=== PATIENT | female | born 1945 | race Hispanic/Latino ===

== ENCOUNTER 2018-05-04 06:57 | Emergency (ER) | payer MEDICARE ==
[2018-05-04 07:28] LABS: BASOPHILS % (AUTO) 0.6 % (0.0-5.0); EOSINOPHILS % (AUTO) 0.4 % (0.0-8.0); HEMATOCRIT 31.4 % (36-48); LYMPHOCYTES % (AUTO) 17.2 % (21.0-51.0); MEAN CORPUSCULAR HGB CONC 32.6 g/dL (32.0-36.0); MONOCYTES % (AUTO) 4.8 % (3.0-13.0); PLATELET COUNT (AUTO) 180 K/uL (130-400); RED BLOOD CELL COUNT(AUTO) 3.65 MIL/uL (4.00-5.50); RED CELL DISTRIBUTION WIDTH 13.2 % (11.0-15.5); WHITE BLOOD COUNT (AUTO) 6.8 K/uL (4.8-10.8)
[2018-05-04] MEDS ORDERED: KETOROLAC TROMETHAMINE 15MG/ML ONE (07:36)
[2018-05-04] MEDS ORDERED: ONDANSETRON HCL 4 MG/2 ML VIAL ONE (07:36)
[2018-05-04 07:43] LABS: CREATININE 0.8 mg/dL (0.5-1.5); POTASSIUM 4.5 mmol/L (3.5-5.1)
[2018-05-04 07:49] LABS: ALBUMIN 3.4 g/dL (3.5-5.0); BILIRUBIN,TOTAL 0.4 mg/dL (0.2-1.0); TOTAL PROTEIN, SERUM 7.2 g/dL (6.0-8.3)
== END 2018-05-04 09:32 | disposition home or self-care (01) ==
LOC: EDH 06:57
DX: K59.00 Constipation, unspecified (principal); R11.10 Vomiting, unspecified; M62.830 Muscle spasm of back; E78.5 Hyperlipidemia, unspecified; E07.9 Disorder of thyroid, unspecified; I25.10 Atherosclerotic heart disease of native coronary artery without angina pectoris; E11.9 Type 2 diabetes mellitus without complications; I10 Essential (primary) hypertension
CPT/HCPCS: 36415; 71046; 80053; 85025; 93005; 96374; 96375; 99284; J1885; J2405

== ENCOUNTER 2018-10-01 20:25 | Emergency (ER) | payer MEDICARE ==
[2018-10-01 21:28] LABS: EOSINOPHILS % (AUTO) 1.2 % (0.0-8.0); HEMATOCRIT 32.2 % (36-48); LYMPHOCYTES % (AUTO) 30.8 % (21.0-51.0); MEAN CORPUSCULAR HEMOGLOBIN 25.7 pg (27.0-33.0); MEAN CORPUSCULAR HGB CONC 32.4 g/dL (32.0-36.0); MEAN CORPUSCULAR VOLUME 79.5 fL (79-99); MONOCYTES % (AUTO) 18.4 % (3.0-13.0); NEUTROPHILS % (AUTO) 48.6 % (40.0-77.0); PLATELET COUNT (AUTO) 150 K/uL (130-400); RED BLOOD CELL COUNT(AUTO) 4.06 MIL/uL (4.00-5.50); RED CELL DISTRIBUTION WIDTH 15.6 % (11.0-15.5); WHITE BLOOD COUNT (AUTO) 5.1 K/uL (4.8-10.8)
[2018-10-01 21:38] LABS: CREATININE 0.8 mg/dL (0.5-1.5); POTASSIUM 4.4 mmol/L (3.5-5.1)
[2018-10-01 21:43] LABS: ALBUMIN 3.1 g/dL (3.5-5.0); BILIRUBIN,DIRECT 0.1 mg/dL (0.0-0.3); BILIRUBIN,TOTAL 0.3 mg/dL (0.2-1.0); TOTAL PROTEIN, SERUM 7.3 g/dL (6.0-8.3)
[2018-10-01] MEDS ORDERED: LIDOCAINE 5% TOPICAL PATCH TP ONE (21:57)
[2018-10-01 22:04] LABS: APPEARANCE,URINE Clear (CLEAR); BILIRUBIN,URINE Negative (NEGATIVE); COLOR,URINE Dark Yellow (YELLOW); GLUCOSE, URINE (UA) Negative (NEGATIVE); KETONES,URINE Negative (NEGATIVE); LEUKOCYTE ESTERASE ,URINE Small (NEGATIVE); NITRATE,URINE Positive (NEGATIVE); OCCULT BLOOD,URINE Small (NEGATIVE); PROTEIN,URINE 300 mg/dL (NEGATIVE); UROBILINOGEN,URINE 0.2 mg/dL (0.2-1.0)
[2018-10-01 22:10] LABS: BACTERIA,URINE Many /HPF (None Seen); RBC,URINE 0-1 /HPF (0-1)
[2018-10-01 22:11] LABS: SQUAMOUS EPITHELIAL CELL,UR 0-2 /HPF (0-2)
[2018-10-01] MEDS ORDERED: CEFTRIAXONE SODIUM 1 GM ONE ×2 (22:20→22:30)
[2018-10-01] MEDS ORDERED: KETOROLAC TROMETHAMINE 15MG/ML ONE ×2 (22:21→22:30)
== END 2018-10-02 02:04 | disposition home or self-care (01) ==
LOC: EDH 20:25
DX: N39.0 Urinary tract infection, site not specified (principal); B02.9 Zoster without complications; I10 Essential (primary) hypertension; E11.9 Type 2 diabetes mellitus without complications; I25.10 Atherosclerotic heart disease of native coronary artery without angina pectoris; E78.5 Hyperlipidemia, unspecified; E07.9 Disorder of thyroid, unspecified; Z88.8 Allergy status to other drugs, medicaments and biological substances
CPT/HCPCS: 36415; 74176; 76856; 80048; 80076; 81001; 83690; 85025; 96374; 96375; 99285; J0696; J1885

== ENCOUNTER 2019-09-20 21:49 | Emergency (ER) | payer MEDICARE ==
[2019-09-20 23:24] LABS: BASOPHILS % (AUTO) 0.6 % (0.0-5.0); EOSINOPHILS % (AUTO) 0.1 % (0.0-8.0); HEMATOCRIT 33.7 % (36-48); LYMPHOCYTES % (AUTO) 10.3 % (21.0-51.0); MEAN CORPUSCULAR HGB CONC 32.3 g/dL (32.0-36.0); MEAN CORPUSCULAR VOLUME 83.6 fL (79-99); MONOCYTES % (AUTO) 14.8 % (3.0-13.0); NEUTROPHILS % (AUTO) 73.6 % (40.0-77.0); PLATELET COUNT (AUTO) 209 K/uL (130-400); RED BLOOD CELL COUNT(AUTO) 4.03 MIL/uL (4.00-5.50); RED CELL DISTRIBUTION WIDTH 14.3 % (11.0-15.5); WHITE BLOOD COUNT (AUTO) 7.9 K/uL (4.8-10.8)
[2019-09-20 23:26] LABS: BILIRUBIN,URINE Negative (NEGATIVE); COLOR,URINE Yellow (YELLOW); GLUCOSE, URINE (UA) TRACE mg/dL (NEGATIVE); KETONES,URINE 15 mg/dL (NEGATIVE); LEUKOCYTE ESTERASE ,URINE Negative (NEGATIVE); NITRATE,URINE Negative (NEGATIVE); OCCULT BLOOD,URINE Small (NEGATIVE); PH,URINE 5.5 (5.0-8.0); PROTEIN,URINE >=1000 mg/dL (NEGATIVE); UROBILINOGEN,URINE 0.2 mg/dL (0.2-1.0)
[2019-09-20 23:27] LABS: APPEARANCE,URINE SLIGHTLY CLOUDY (CLEAR)
[2019-09-20] MEDS ORDERED: ACETAMINOPHEN EXTRA STRENGTH 500 MG TABLET ONE (23:27)
[2019-09-20] MEDS ORDERED: SODIUM CHLORIDE 0.9% 500ML 1,000 ML IV ONE (23:28)
[2019-09-20 23:33] LABS: RAPID GROUP A STREP NEGATIVE (NEGATIVE)
[2019-09-20 23:37] LABS: INR 0.94 (0.85-1.15); PARTIAL THROMBOPLASTIN TIME 26.1 SEC (26.3-35.5); PROTHROMBIN TIME 10.2 SEC (9.6-11.6)
[2019-09-20 23:38] LABS: POTASSIUM 4.6 mmol/L (3.5-5.1)
[2019-09-20 23:42] LABS: BACTERIA,URINE Many /HPF (None Seen); SQUAMOUS EPITHELIAL CELL,UR 0-2 /HPF (0-2)
[2019-09-20 23:43] LABS: ALBUMIN 3.3 g/dL (3.5-5.0); BILIRUBIN,TOTAL 0.3 mg/dL (0.2-1.0); TOTAL PROTEIN, SERUM 7.8 g/dL (6.0-8.3)
[2019-09-20 23:44] LABS: CRP QUANTITATIVE 36.8 mg/L (0.00-9.0)
[2019-09-20] MEDS ORDERED: CEFTRIAXONE SODIUM 2 GM VIAL ONE (23:46)
[2019-09-21] MEDS ORDERED: IOHEXOL 350 MG/ML 100ML INFUS..BTL IV ONE (02:09)
== END 2019-09-21 06:09 | disposition home or self-care (01) ==
LOC: EDH 21:49
DX: U07.1 COVID-19 (principal); J12.89 Other viral pneumonia; I10 Essential (primary) hypertension; E11.9 Type 2 diabetes mellitus without complications; E78.5 Hyperlipidemia, unspecified; I25.10 Atherosclerotic heart disease of native coronary artery without angina pectoris; E07.9 Disorder of thyroid, unspecified
CPT/HCPCS: 36415 ×2; 71045; 71275; 80053; 81001; 82550; 82728; 83605 ×2; 84484; 85025; 85378; 85384; 85610; 85730; 86140; 87077; 87088; 87186; 87804 ×2; 87880; 96374; 99285; J0696; J7040; Q9967; U0003

== ENCOUNTER 2022-07-16 14:19 | Observation (INO) | payer OTHER, MEDICARE ==
[~2022-07-16] VITALS: Ht 152.4 cm; Wt 70.8 kg
[2022-07-16 15:47] LABS: BASOPHILS % (AUTO) 0.2 % (0.0-5.0); EOSINOPHILS % (AUTO) 0.2 % (0.0-8.0); HEMATOCRIT 27.4 % (36-48); LYMPHOCYTES % (AUTO) 7.6 % (21.0-51.0); MEAN CORPUSCULAR HGB CONC 33.2 g/dL (32.0-36.0); MEAN CORPUSCULAR VOLUME 81.3 fL (79-99); MONOCYTES % (AUTO) 7.8 % (3.0-13.0); NEUTROPHILS % (AUTO) 82.9 % (40.0-77.0); PLATELET COUNT (AUTO) 291 K/uL (130-400); RED BLOOD CELL COUNT(AUTO) 3.37 MIL/uL (4.00-5.50); RED CELL DISTRIBUTION WIDTH 13.5 % (11.0-15.5); WHITE BLOOD COUNT (AUTO) 10.8 K/uL (4.8-10.8)
[2022-07-16 16:16] LABS: CREATININE 1.2 mg/dL (0.5-1.5); POTASSIUM 3.1 mmol/L (3.5-5.1)
[2022-07-16 16:25] LABS: ALBUMIN 1.5 g/dL (3.5-5.0); TOTAL PROTEIN, SERUM 6.9 g/dL (6.0-8.3)
[2022-07-16] MEDS ORDERED: POTASSIUM BICARB/CIT AC 25 MEQ TABLET.EFF PO SCH (17:30)
[2022-07-16 17:56] LABS: INFLUENZA TYPE B NEGATIVE FOR TYPE B (NEG)
[2022-07-16 17:57] LABS: INFLUENZA TYPE A POSITIVE FOR TYPE A (NEG)
[2022-07-16] MEDS ORDERED: SOLU-MEDROL 125MG VIAL IVP ONE (18:00)
[2022-07-16] MEDS ORDERED: IPRATROPIUM/ALBUTEROL SULFATE 3 ML SOLUTION IH ONE (18:00)
[2022-07-16 18:22] LABS: APPEARANCE,URINE CLEAR (CLEAR); BILIRUBIN,URINE NEGATIVE (NEGATIVE); COLOR,URINE LIGHT-YELLOW (YELLOW); GLUCOSE, URINE (UA) 150 mg/dL (NEGATIVE); KETONES,URINE NEGATIVE (NEGATIVE); LEUKOCYTE ESTERASE ,URINE NEGATIVE Leu/uL (NEGATIVE); NITRATE,URINE NEGATIVE (NEGATIVE); OCCULT BLOOD,URINE MODERATE (NEGATIVE); PROTEIN,URINE 600 mg/dL (NEGATIVE); UROBILINOGEN,URINE 0.2 mg/dL (0.2-1.0)
[2022-07-16 18:45] LABS: BACTERIA,URINE RARE /HPF (None Seen); MUCUS,URINE RARE LPF (None Seen); RBC,URINE 0-1 /HPF (0-1); SQUAMOUS EPITHELIAL CELL,UR FEW /HPF (0-2)
[2022-07-16] MEDS ORDERED: ASPIRIN 325MG EC TAB PO ONE (19:00)
[2022-07-16] MEDS ORDERED: OSELTAMIVIR PHOSPHATE 75 MG CAP PO ONE (19:00)
[2022-07-16] MEDS ORDERED: ENOXAPARIN SODIUM 80 MG/0.8 ML SQ ONE (19:00)
[2022-07-16] MEDS: OSELTAMIVIR PHOSPHATE 75 MG CAP PO SCH (19:38)
[2022-07-16] MEDS ORDERED: DIPHENHYDRAMINE HCL 25 MG CAPSULE PO PRN (20:00)
[2022-07-16] MEDS ORDERED: POTASSIUM CHLORIDE 10% ELIXIR 20 MEQ/15 ML UDCUP PO PRN (20:00)
[2022-07-16] MEDS ORDERED: MAG/ALUM/SIMETH 30 ML UDCUP PO PRN (20:00)
[2022-07-16] MEDS ORDERED: KCL 20 MEQ ERTAB PO PRN (20:00)
[2022-07-16] MEDS ORDERED: POTASSIUM CHLORIDE 20MEQ/100ML 100 ML IV PRN (20:00)
[2022-07-16] MEDS ORDERED: IPRATROPIUM/ALBUTEROL SULFATE 3 ML SOLUTION IH PRN (20:00)
[2022-07-16] MEDS ORDERED: ACETAMINOPHEN 325 MG TAB PO PRN ×2 (20:00)
[2022-07-16] MEDS ORDERED: LACTULOSE 20 GM/30 ML UDCUP PO PRN (20:00)
[2022-07-16] MEDS ORDERED: GUAIFENESIN-DM 200/20 MG 10 ML PO PRN (20:00)
[2022-07-16] MEDS ORDERED: MORPHINE 4 MG SYG IV PRN (20:00)
[2022-07-16] MEDS ORDERED: NITROGLYCERIN 0.4 MG SL TAB SL PRN (20:00)
[2022-07-16] MEDS ORDERED: ONDANSETRON 4MG INJ IV PRN (20:00)
[2022-07-16] MEDS: AZITHROMYCIN 250 MG TABLET PO SCH (21:02)
[2022-07-16] MEDS: CEFTRIAXONE 1G VIAL IVP SCH (21:02)
[2022-07-16] MEDS: FAMOTIDINE 20MG TAB PO SCH (21:02)
[2022-07-16] MEDS: INSULIN HUMULIN R 100 UNIT/ML 3ML SQ SCH (21:14)
[2022-07-16 23:55] VITALS: BP 126/74
[2022-07-17 03:21] VITALS: BP 121/68
[2022-07-17 03:46] LABS: MEAN CORPUSCULAR HEMOGLOBIN 27.3 pg (27.0-33.0); MEAN CORPUSCULAR HGB CONC 33.7 g/dL (32.0-36.0); MEAN CORPUSCULAR VOLUME 81.1 fL (79-99); RED BLOOD CELL COUNT(AUTO) 3.33 MIL/uL (4.00-5.50); RED CELL DISTRIBUTION WIDTH 13.4 % (11.0-15.5); WHITE BLOOD COUNT (AUTO) 6.9 K/uL (4.8-10.8)
[2022-07-17 03:59] LABS: CREATININE 1.1 mg/dL (0.5-1.5); MAGNESIUM 1.8 mg/dL (1.80-2.40)
[2022-07-17] MEDS: INSULIN HUMULIN R 100 UNIT/ML 3ML SQ SCH ×4 (06:14→20:33)
[2022-07-17 07:00] VITALS: BP 128/74
[2022-07-17] MEDS: OSELTAMIVIR PHOSPHATE 75 MG CAP PO SCH ×2 (08:39→20:31)
[2022-07-17] MEDS: ENOXAPARIN SODIUM 40 MG/0.4 ML SYRINGE SQ SCH (08:39)
[2022-07-17] MEDS: ASPIRIN 81 MG EC TAB PO SCH (08:40)
[2022-07-17] MEDS: FAMOTIDINE 20MG TAB PO SCH ×2 (08:40→20:30)
[2022-07-17 11:20] VITALS: BP 108/66
[2022-07-17] MEDS ORDERED: FUROSEMIDE 40MG VIAL IV ONE (12:30)
[2022-07-17] MEDS ORDERED: MAGNESIUM 2GM PREMIX 50ML 50 ML IV SCH (15:00)
[2022-07-17] MEDS ORDERED: ROSU10TA28 PO (16:06)
[2022-07-17] MEDS ORDERED: LEVO75 PO (16:06)
[2022-07-17] MEDS ORDERED: LINA5TAB PO (16:06)
[2022-07-17] MEDS ORDERED: FERR-72 PO (16:06)
[2022-07-17] MEDS ORDERED: EZET10TA48 PO (16:06)
[2022-07-17] MEDS ORDERED: ISOS10TA8 PO (16:06)
[2022-07-17] MEDS ORDERED: LISI40TA9 PO (16:06)
[2022-07-17 16:35] VITALS: BP 131/73
[2022-07-17 19:14] VITALS: BP 118/71
[2022-07-17] MEDS: CEFTRIAXONE 1G VIAL IVP SCH (20:29)
[2022-07-17] MEDS: AZITHROMYCIN 250 MG TABLET PO SCH (20:31)
[2022-07-17] MEDS ORDERED: ISOSORBIDE MONONITRATE 20 MG TABLET PO SCH (21:00)
[2022-07-17] MEDS ORDERED: EZETIMIBE 10 MG TAB PO SCH (21:00)
[2022-07-17 23:00] VITALS: BP 126/75
[2022-07-18 03:23] VITALS: BP 123/69
[2022-07-18 03:58] LABS: HEMATOCRIT 27.4 % (36-48); MEAN CORPUSCULAR HEMOGLOBIN 26.6 pg (27.0-33.0); MEAN CORPUSCULAR HGB CONC 31.8 g/dL (32.0-36.0); MEAN CORPUSCULAR VOLUME 83.8 fL (79-99); RED BLOOD CELL COUNT(AUTO) 3.27 MIL/uL (4.00-5.50); RED CELL DISTRIBUTION WIDTH 13.5 % (11.0-15.5); WHITE BLOOD COUNT (AUTO) 13.4 K/uL (4.8-10.8)
[2022-07-18] MEDS: INSULIN HUMULIN R 100 UNIT/ML 3ML SQ SCH ×2 (05:55→11:30)
[2022-07-18] MEDS ORDERED: LEVOTHYROXINE 75 MCG TABLET PO SCH (06:30)
[2022-07-18 07:25] VITALS: BP 128/73
[2022-07-18] MEDS ORDERED: FERROUS SULFATE 325 MG TABLET.DR PO SCH (08:00)
[2022-07-18] MEDS: ENOXAPARIN SODIUM 40 MG/0.4 ML SYRINGE SQ SCH (08:44)
[2022-07-18] MEDS: ASPIRIN 81 MG EC TAB PO SCH (08:45)
[2022-07-18] MEDS: OSELTAMIVIR PHOSPHATE 75 MG CAP PO SCH (08:45)
[2022-07-18] MEDS: FAMOTIDINE 20MG TAB PO SCH (08:45)
[2022-07-18] MEDS ORDERED: FUROSEMIDE 20 MG TABLET PO SCH (09:00)
[2022-07-18] MEDS ORDERED: ATORVASTATIN 20 MG TABLET PO SCH (09:00)
[2022-07-18] MEDS ORDERED: LISINOPRIL 40 MG TABLET PO SCH (09:00)
[2022-07-18] MEDS ORDERED: OSEL75 PO (10:43)
[2022-07-18] MEDS ORDERED: FURO20TA4 PO (10:43)
[2022-07-18] MEDS ORDERED: AMOX1TAB16 PO (10:43)
[2022-07-18] MEDS ORDERED: SODIUM CHLORIDE 3% FOR INHALATION 4 ML/AMP VIAL.NEB IH ONE (10:52)
[2022-07-18] MEDS ORDERED: BENZ-39 PO (11:12)
[2022-07-18 11:20] VITALS: BP 137/64
== END 2022-07-18 12:10 | disposition home or self-care (01) ==
LOC: EDH 14:19 → EDHIP 18:53 → 2AH 07-17 00:05
PROVIDERS: ADMIT Internal Medicine; ATTEND Hospitalist
DX: I11.0 Hypertensive heart disease with heart failure (principal); Z20.822 Contact with and (suspected) exposure to COVID-19; I50.9 Heart failure, unspecified; J18.9 Pneumonia, unspecified organism; R74.8 Abnormal levels of other serum enzymes; J10.1 Influenza due to other identified influenza virus with other respiratory manifestations; E87.6 Hypokalemia; E11.65 Type 2 diabetes mellitus with hyperglycemia; E03.9 Hypothyroidism, unspecified; D64.9 Anemia, unspecified; E78.00 Pure hypercholesterolemia, unspecified; E66.9 Obesity, unspecified; I24.8 Other forms of acute ischemic heart disease; J10.00 Influenza due to other identified influenza virus with unspecified type of pneumonia; R77.8 Other specified abnormalities of plasma proteins; J20.9 Acute bronchitis, unspecified; Z68.34 Body mass index [BMI] 34.0-34.9, adult; Z78.9 Other specified health status; Z79.4 Long term (current) use of insulin; Z79.899 Other long term (current) drug therapy; Z90.710 Acquired absence of both cervix and uterus
CPT/HCPCS: 96372 ×3; 96375 ×3; 84484 ×3; 80053; 83880; 83690; 85025; 87040 ×2; 87880; 87804 ×2; 82948 ×7; 83605 ×2; 81001; 36415 ×3; 87635; 71045; 99291; 93005 ×2; 94640 ×2; 84145; 97039 ×2; 96376; 96365; 96366; 83735 ×2; 80048; 85027 ×2; 71250; 93306; 93356; 97161; 92610; J1815 ×4; G0378 ×38; C9803; J2930; J0696 ×2; J1650 ×3; J3475; J1940; 96374

== ENCOUNTER → 2023-07-05 | Outpatient (CLI) | payer OTHER, MEDICARE ==
[~2023-07-05] MED LIST: AMOX1TAB16 PO; BENZ-39 PO; EZET10TA48 PO; FERR-72 PO; FURO20TA4 PO; IOHEXOL 350 MG/ML 100ML INFUS..BTL IV ONE; ISOS10TA8 PO; LEVO75 PO; LINA5TAB PO; LISI40TA9 PO; OSEL75 PO; ROSU10TA28 PO
== END | disposition home or self-care (01) ==
LOC: RAH 07:57
PROVIDERS: ATTEND Family Medicine
DX: K57.30 Diverticulosis of large intestine without perforation or abscess without bleeding (principal); R93.89 Abnormal findings on diagnostic imaging of other specified body structures; J90 Pleural effusion, not elsewhere classified; J98.11 Atelectasis
CPT/HCPCS: 74178; Q9967

== ENCOUNTER 2023-12-02 20:48 | Inpatient (IN) | payer OTHER, MEDICARE ==
[~2023-12-02] VITALS: Ht 165.1 cm; Wt 88.0 kg
[~2023-12-02 20:48] MED LIST changes: -IOHEXOL 350 MG/ML 100ML INFUS..BTL IV ONE; -ROSU10TA28 PO; +ROSU10TA72 PO
[2023-12-02 21:32] LABS: BASOPHILS # (AUTO) 0.04 K/uL (0.00-0.20); BASOPHILS % (AUTO) 0.6 % (0.0-5.0); EOSINOPHILS # (AUTO) 0.12 K/uL (0.00-0.70); EOSINOPHILS % (AUTO) 1.9 % (0.0-8.0); IMMATURE GRANULOCYTE ABSOLUTE 0.01 K/uL (0-1); LYMPHOCYTES # (AUTO) 1.8 K/uL (1.0-4.8); LYMPHOCYTES % (AUTO) 27.2 % (21.0-51.0); MEAN CORPUSCULAR HEMOGLOBIN 28.3 pg (27.0-33.0); MEAN CORPUSCULAR HGB CONC 31.5 g/dL (32.0-36.0); MONOCYTES # (AUTO) 0.7 K/uL (0.1-1.0); NEUTROPHILS # (AUTO) 3.8 K/uL (1.8-7.7); NEUTROPHILS % (AUTO) 59.1 % (40.0-77.0); PLATELET COUNT (AUTO) 180 K/uL (130-400); RED CELL DISTRIBUTION WIDTH 14.5 % (11.0-15.5); WHITE BLOOD COUNT (AUTO) 6.5 K/uL (4.8-10.8)
[2023-12-02 21:38] LABS: CREATININE 1.5 mg/dL (0.5-1.0); POTASSIUM 5.4 mmol/L (3.5-5.1)
[2023-12-02 21:45] LABS: APPEARANCE,URINE CLEAR (CLEAR); BILIRUBIN,URINE NEGATIVE (NEGATIVE); COLOR,URINE LIGHT-YELLOW (YELLOW); GLUCOSE, URINE (UA) TRACE mg/dL (NEGATIVE); KETONES,URINE NEGATIVE (NEGATIVE); LEUKOCYTE ESTERASE ,URINE NEGATIVE Leu/uL (NEGATIVE); NITRATE,URINE NEGATIVE (NEGATIVE); OCCULT BLOOD,URINE SMALL (NEGATIVE); PH,URINE 6.5 (5.0-8.0); PROTEIN,URINE 600 mg/dL (NEGATIVE); UROBILINOGEN,URINE 0.2 mg/dL (0.2-1.0)
[2023-12-02 21:46] LABS: ADD UA MICROSCOPIC YES
[2023-12-02 21:48] LABS: INR 1.01 (0.85-1.15); PROTHROMBIN TIME 10.9 SEC (9.6-11.6)
[2023-12-02 21:48] LABS: BACTERIA,URINE RARE /HPF (None Seen)
[2023-12-02 21:50] LABS: PARTIAL THROMBOPLASTIN TIME 25.9 SEC (26.3-35.5)
[2023-12-02 21:54] LABS: B-TYPE NATRIURETIC PEPTIDE 2300 pg/mL (0-100)
[2023-12-02] MEDS: furoSEMIDE 20MG VIAL IV ONE (22:47)
[2023-12-02] MEDS: ASPIRIN 325MG TAB PO ONE (22:48)
[2023-12-02] MEDS: metoPROLOL tartRATE 1 MG/ML 5ML VIAL IV ONE (22:48)
[2023-12-02] MEDS ORDERED: acetaMINOPHEN 650 MG SUPPOSITORY RC PRN (23:00)
[2023-12-02] MEDS ORDERED: TEMAZepam 15 MG CAPSULE PO PRN (23:00)
[2023-12-02] MEDS ORDERED: ondanSETRON 4MG INJ IVP PRN (23:00)
[2023-12-02] MEDS ORDERED: doCUSate SODIUM 100 MG CAP PO PRN (23:00)
[2023-12-02 23:47] LABS: SARS-CoV-2, RNA, NAAT NEGATIVE SARS CoV-2 (NEGATIVE)
[2023-12-02] MEDS: hydrALAZine 20MG/ML VIAL IV PRN (23:48)
[2023-12-02 23:54] LABS: INFLUENZA TYPE A Negative For Type A (NEGATIVE); INFLUENZA TYPE B Negative For Type B (NEGATIVE)
[2023-12-03] VITALS (10 sets, daily range): BP systolic 101–160; BP diastolic 59–91; PULSE 85–97; RESP 16–22; TEMP 98.1–98.8; O2SAT 95–98
[2023-12-03 00:08] LABS: ABG BASE EXCESS -1.9 mmol/L (-2.0-3.0); ABG HCO3 21.9 mmol/L (21.0-28.0); ABG PCO2 34 mmHg (32-45); ABG PH 7.432 (7.350-7.450); CARBON MONOXIDE 0.3 % (0.5-1.5); DEVICE COMMENT RR; VENT MODE, BG CANNULA (ROOM AIR)
[2023-12-03] MEDS: furoSEMIDE 20MG VIAL IV ONE (00:34)
[2023-12-03] MEDS: NITROGLYCERIN 1GM OINT 1 INCH/1GM TD SCH (00:34)
[2023-12-03] MEDS: NITROGLYCERIN 0.4 MG SL TAB SL ONE (01:12)
[2023-12-03] MEDS ORDERED: FOLI0.4T6 PO (01:17)
[2023-12-03] MEDS ORDERED: FERR324T9 PO (01:17)
[2023-12-03] MEDS ORDERED: CYAN-106 PO (01:17)
[2023-12-03] MEDS ORDERED: CARV12.511 PO (01:17)
[2023-12-03] MEDS ORDERED: FERS325 PO (01:17)
[2023-12-03 03:47] LABS: BASOPHILS # (AUTO) 0.04 K/uL (0.00-0.20); BASOPHILS % (AUTO) 0.4 % (0.0-5.0); HEMATOCRIT 28.3 % (36-48); IMMATURE GRANULOCYTE ABSOLUTE 0.04 K/uL (0-1); LYMPHOCYTES # (AUTO) 0.8 K/uL (1.0-4.8); LYMPHOCYTES % (AUTO) 9.3 % (21.0-51.0); MEAN CORPUSCULAR HGB CONC 31.8 g/dL (32.0-36.0); MEAN CORPUSCULAR VOLUME 87.9 fL (79-99); MONOCYTES # (AUTO) 0.3 K/uL (0.1-1.0); MONOCYTES % (AUTO) 3.5 % (3.0-13.0); NEUTROPHILS # (AUTO) 7.8 K/uL (1.8-7.7); NEUTROPHILS % (AUTO) 86.4 % (40.0-77.0); PLATELET COUNT (AUTO) 179 K/uL (130-400); RED BLOOD CELL COUNT(AUTO) 3.22 MIL/uL (4.00-5.50); RED CELL DISTRIBUTION WIDTH 14.5 % (11.0-15.5)
[2023-12-03 04:05] LABS: HEMOGLOBIN A1C 5.1 % (4.0-6.0)
[2023-12-03 04:14] LABS: CREATININE 1.5 mg/dL (0.5-1.0); MAGNESIUM 1.7 mg/dL (1.80-2.40); PHOSPHORUS 3.4 mg/dL (2.5-4.9); POTASSIUM 5.6 mmol/L (3.5-5.1); THYROID STIMULATING HORMONE 5.57 uIU/mL (0.36-3.74)
[2023-12-03] MEDS: CALCIUM GLUC 1GM/10ML VIAL IVPB ONE (06:09)
[2023-12-03] MEDS: SODIUM BICARB 50MEQ 50ML VIAL IV ONE (06:10)
[2023-12-03] MEDS: INSULIN humuLIN R 100 UNIT/ML 3ML SQ SCH (06:20)
[2023-12-03] MEDS: INSULIN humuLIN R 100 UNIT/ML 3ML IV ONE (06:31)
[2023-12-03] MEDS: kayEXALate 15GM/60ML PO ONE (06:31)
[2023-12-03] MEDS: DEXTROSE 50%-WATER 50 ML DISP.SYRIN IV ONE (06:31)
[2023-12-03] MEDS: ALBUTEROL 0.083% 2.5 MG/3 ML INH IH ONE (06:42)
[2023-12-03] MEDS: HEParin 25,000 UNITS/250ML D5W 250 ML IV SCH (08:08)
[2023-12-03] MEDS: HEParin 5,000 UNIT VIAL IV PRN (08:12)
[2023-12-03] MEDS: ASPIRIN 81MG CHEW TAB PO SCH (09:22)
[2023-12-03 17:59] LABS: CREATININE 1.8 mg/dL (0.5-1.0); POTASSIUM 4.6 mmol/L (3.5-5.1)
[2023-12-03] MEDS: LACTULOSE 20 GM/30 ML UDCUP PO PRN (18:13)
[2023-12-03] MEDS: atorVAStatin 40 MG TABLET PO SCH (21:07)
[2023-12-03] MEDS: carVEDIlol 12.5 MG TABLET PO SCH (21:11)
[2023-12-04] VITALS (8 sets, daily range): BP systolic 94–140; BP diastolic 58–70; PULSE 72–79; RESP 16–20; TEMP 98.2–98.9; O2SAT 95–96
[2023-12-04 01:31] LABS: HEMATOCRIT 24.2 % (36-48); MEAN CORPUSCULAR HEMOGLOBIN 28.3 pg (27.0-33.0); MEAN CORPUSCULAR HGB CONC 31.8 g/dL (32.0-36.0); RED BLOOD CELL COUNT(AUTO) 2.72 MIL/uL (4.00-5.50); RED CELL DISTRIBUTION WIDTH 14.7 % (11.0-15.5); WHITE BLOOD COUNT (AUTO) 9.1 K/uL (4.8-10.8)
[2023-12-04 01:56] LABS: % IRON SATURATION 25.7 % (22-44)
[2023-12-04 01:58] LABS: ALBUMIN 1.5 g/dL (3.5-5.0); BILIRUBIN,TOTAL 0.2 mg/dL (0.2-1.0); CREATININE 1.7 mg/dL (0.5-1.0); MAGNESIUM 1.7 mg/dL (1.80-2.40); PHOSPHORUS 3.7 mg/dL (2.5-4.9); POTASSIUM 4.5 mmol/L (3.5-5.1); TOTAL PROTEIN, SERUM 4.8 g/dL (6.0-8.3); URIC ACID 6.1 mg/dL (2.6-7.2)
[2023-12-04] MEDS: cloPIDOgrel 75MG TAB PO SCH (10:26)
[2023-12-04] MEDS: Vitamin B Complex/Vit C/Folic Acid PO SCH (10:26)
[2023-12-04] MEDS ORDERED: PoTASSium chloRIDE 10MEQ SR 10 MEQ/TAB TAB.SR.24H PO PRN (19:00)
[2023-12-04] MEDS ORDERED: PoTASSium chl 10% ELIXIR 20MEQ 20 MEQ/15 ML UDCUP PO PRN (19:00)
[2023-12-04] MEDS ORDERED: PoTASSium chloRIDE 10MEQ/100ML 100 ML IV PRN ×2 (19:00)
[2023-12-04] MEDS ORDERED: IRON sUCROse COMPLEX 300 MG in 0.9% NACL 250ML 250 ML IV ONE (21:00)
[2023-12-05] VITALS (10 sets, daily range): BP systolic 95–148; BP diastolic 47–82; PULSE 67–75; RESP 18; TEMP 98–98.7; O2SAT 93–95
[2023-12-05 03:34] LABS: BASOPHILS # (AUTO) 0.05 K/uL (0.00-0.20); BASOPHILS % (AUTO) 0.6 % (0.0-5.0); EOSINOPHILS # (AUTO) 0.14 K/uL (0.00-0.70); EOSINOPHILS % (AUTO) 1.8 % (0.0-8.0); HEMATOCRIT 24.1 % (36-48); IMMATURE GRANULOCYTE ABSOLUTE 0.05 K/uL (0-1); LYMPHOCYTES # (AUTO) 1.8 K/uL (1.0-4.8); LYMPHOCYTES % (AUTO) 22.4 % (21.0-51.0); MEAN CORPUSCULAR HEMOGLOBIN 27.8 pg (27.0-33.0); MEAN CORPUSCULAR HGB CONC 30.7 g/dL (32.0-36.0); MEAN CORPUSCULAR VOLUME 90.6 fL (79-99); MONOCYTES # (AUTO) 0.8 K/uL (0.1-1.0); MONOCYTES % (AUTO) 10.7 % (3.0-13.0); NEUTROPHILS % (AUTO) 63.9 % (40.0-77.0); PLATELET COUNT (AUTO) 157 K/uL (130-400); RED BLOOD CELL COUNT(AUTO) 2.66 MIL/uL (4.00-5.50); RED CELL DISTRIBUTION WIDTH 14.8 % (11.0-15.5); WHITE BLOOD COUNT (AUTO) 7.9 K/uL (4.8-10.8)
[2023-12-05 03:46] LABS: CREATININE 1.7 mg/dL (0.5-1.0); MAGNESIUM 1.6 mg/dL (1.80-2.40); PHOSPHORUS 3.8 mg/dL (2.5-4.9); POTASSIUM 4.5 mmol/L (3.5-5.1)
[2023-12-05] MEDS: MAGNESIUM 2GM PREMIX 50ML 50 ML IV PRN (04:10)
[2023-12-05] MEDS: levoTHYROxine 75 MCG TABLET PO SCH (05:11)
[2023-12-05] MEDS: acetaMINOPHEN 325 MG TAB PO PRN (07:34)
[2023-12-06] VITALS (18 sets, daily range): BP systolic 101–188; BP diastolic 56–90; PULSE 62–80; RESP 16–20; TEMP 98–98.8; O2SAT 94
[2023-12-06] MEDS: HEParin 5,000 UNIT VIAL IV SCH (01:01)
[2023-12-06 03:39] LABS: HEMATOCRIT 23.9 % (36-48); MEAN CORPUSCULAR HEMOGLOBIN 28.5 pg (27.0-33.0); MEAN CORPUSCULAR HGB CONC 32.6 g/dL (32.0-36.0); MEAN CORPUSCULAR VOLUME 87.2 fL (79-99); RED BLOOD CELL COUNT(AUTO) 2.74 MIL/uL (4.00-5.50); RED CELL DISTRIBUTION WIDTH 14.5 % (11.0-15.5); WHITE BLOOD COUNT (AUTO) 7.7 K/uL (4.8-10.8)
[2023-12-06 03:53] LABS: ALBUMIN 1.3 g/dL (3.5-5.0); BILIRUBIN,TOTAL 0.3 mg/dL (0.2-1.0); CREATININE 1.8 mg/dL (0.5-1.0); POTASSIUM 4.2 mmol/L (3.5-5.1); TOTAL PROTEIN, SERUM 4.7 g/dL (6.0-8.3)
[2023-12-06 04:08] LABS: INR 1.1 (0.85-1.15); PROTHROMBIN TIME 11.8 SEC (9.6-11.6)
[2023-12-06 04:52] LABS: PARTIAL THROMBOPLASTIN TIME 123.2 SEC (26.3-35.5)
[2023-12-06] MEDS: amLODIPine 5 MG TAB ONE (07:53)
[2023-12-06] MEDS: amLODIPine 5 MG TAB PO ONE (07:55)
[2023-12-06] MEDS ORDERED: DiphenhydrAMINE HCL 50 MG/ML VIAL IVP PRN (09:00)
[2023-12-06] MEDS ORDERED: FENTanyl CITRate PF 50 MCG/1 ML 2ML VIAL ONE (12:43)
[2023-12-06] MEDS ORDERED: MIDAZOLAM HCL 1 MG/ML 2ML VIAL ONE (12:43)
[2023-12-06] MEDS ORDERED: metoPROLOL tartRATE 1 MG/ML 5ML VIAL IV ONE (12:43)
[2023-12-06] MEDS: 0.9%NACL 1000ML 1,000 ML IV SCH (20:54)
[2023-12-07 03:55] VITALS: BP 106/59; PULSE 65; RESP 16; TEMP 97.8
[2023-12-07 06:25] LABS: BASOPHILS # (AUTO) 0.05 K/uL (0.00-0.20); BASOPHILS % (AUTO) 0.7 % (0.0-5.0); EOSINOPHILS # (AUTO) 0.15 K/uL (0.00-0.70); EOSINOPHILS % (AUTO) 2.2 % (0.0-8.0); HEMATOCRIT 24.8 % (36-48); IMMATURE GRANULOCYTE ABSOLUTE 0.02 K/uL (0-1); LYMPHOCYTES # (AUTO) 1.1 K/uL (1.0-4.8); MEAN CORPUSCULAR HEMOGLOBIN 27.7 pg (27.0-33.0); MEAN CORPUSCULAR HGB CONC 31.5 g/dL (32.0-36.0); MEAN CORPUSCULAR VOLUME 87.9 fL (79-99); MONOCYTES # (AUTO) 0.8 K/uL (0.1-1.0); NEUTROPHILS # (AUTO) 4.8 K/uL (1.8-7.7); NEUTROPHILS % (AUTO) 68.8 % (40.0-77.0); PLATELET COUNT (AUTO) 152 K/uL (130-400); RED BLOOD CELL COUNT(AUTO) 2.82 MIL/uL (4.00-5.50); RED CELL DISTRIBUTION WIDTH 14.5 % (11.0-15.5); WHITE BLOOD COUNT (AUTO) 6.9 K/uL (4.8-10.8)
[2023-12-07 06:44] LABS: ALBUMIN 1.4 g/dL (3.5-5.0); BILIRUBIN,TOTAL 0.3 mg/dL (0.2-1.0); CREATININE 1.7 mg/dL (0.5-1.0); MAGNESIUM 1.8 mg/dL (1.80-2.40); POTASSIUM 4.8 mmol/L (3.5-5.1)
[2023-12-07 06:50] LABS: INR 1.08 (0.85-1.15); PROTHROMBIN TIME 11.6 SEC (9.6-11.6)
[2023-12-07 06:52] LABS: PARTIAL THROMBOPLASTIN TIME 25.9 SEC (26.3-35.5)
[2023-12-07 07:33] VITALS: BP 139/73; PULSE 71; RESP 18; TEMP 98.4
[2023-12-07] MEDS ORDERED: IRON sUCROse COMPLEX 300 MG in 0.9% NACL 250ML 250 ML IV SCH (09:00)
[2023-12-07] MEDS: amLODIPine 5 MG TAB PO SCH (09:29)
[2023-12-07] MEDS ORDERED: FERROUS FUMARATE 324 MG TABLET PO SCH (10:30)
[2023-12-07 11:35] VITALS: BP 135/81; PULSE 82; RESP 18; TEMP 98.5
[2023-12-07] MEDS: EPOETIN ALFA-EPBX (NON-ESRD) 10,000 UNIT/ML VIAL SQ SCH (13:30)
[2023-12-07] MEDS ORDERED: 0.9%NACL 1000ML 1,000 ML IV SCH (18:30)
[2023-12-07] MEDS ORDERED: DiphenhydrAMINE HCL 50 MG/ML VIAL IVP PRN (18:30)
[2023-12-07 19:08] LABS: HEMATOCRIT 25.9 % (36-48); MEAN CORPUSCULAR HEMOGLOBIN 28.4 pg (27.0-33.0); MEAN CORPUSCULAR HGB CONC 31.7 g/dL (32.0-36.0); MEAN CORPUSCULAR VOLUME 89.6 fL (79-99); RED BLOOD CELL COUNT(AUTO) 2.89 MIL/uL (4.00-5.50); RED CELL DISTRIBUTION WIDTH 14.6 % (11.0-15.5); WHITE BLOOD COUNT (AUTO) 8.7 K/uL (4.8-10.8)
[2023-12-07 19:19] VITALS: BP 124/70; PULSE 98; RESP 18; TEMP 98
[2023-12-07 19:19] LABS: CREATININE 1.8 mg/dL (0.5-1.0); INR 1.11 (0.85-1.15); POTASSIUM 4.6 mmol/L (3.5-5.1); PROTHROMBIN TIME 11.9 SEC (9.6-11.6)
[2023-12-07 19:21] LABS: PARTIAL THROMBOPLASTIN TIME 27.6 SEC (26.3-35.5)
[2023-12-07 19:36] VITALS: BP 132/70; PULSE 81; RESP 18; TEMP 98.1
[2023-12-07 20:00] VITALS: O2SAT 96
[2023-12-08] VITALS (14 sets, daily range): BP systolic 109–153; BP diastolic 47–75; PULSE 74–98; RESP 17–20; TEMP 98–98.6; O2SAT 97
[2023-12-08 03:45] LABS: BASOPHILS # (AUTO) 0.04 K/uL (0.00-0.20); BASOPHILS % (AUTO) 0.6 % (0.0-5.0); EOSINOPHILS # (AUTO) 0.17 K/uL (0.00-0.70); EOSINOPHILS % (AUTO) 2.4 % (0.0-8.0); HEMATOCRIT 23.7 % (36-48); IMMATURE GRANULOCYTE ABSOLUTE 0.03 K/uL (0-1); LYMPHOCYTES # (AUTO) 1.3 K/uL (1.0-4.8); LYMPHOCYTES % (AUTO) 18.1 % (21.0-51.0); MEAN CORPUSCULAR HEMOGLOBIN 28.2 pg (27.0-33.0); MEAN CORPUSCULAR HGB CONC 31.6 g/dL (32.0-36.0); MEAN CORPUSCULAR VOLUME 89.1 fL (79-99); MONOCYTES # (AUTO) 0.8 K/uL (0.1-1.0); MONOCYTES % (AUTO) 10.6 % (3.0-13.0); NEUTROPHILS # (AUTO) 4.8 K/uL (1.8-7.7); NEUTROPHILS % (AUTO) 67.9 % (40.0-77.0); PLATELET COUNT (AUTO) 129 K/uL (130-400); RED BLOOD CELL COUNT(AUTO) 2.66 MIL/uL (4.00-5.50); RED CELL DISTRIBUTION WIDTH 14.5 % (11.0-15.5); WHITE BLOOD COUNT (AUTO) 7.1 K/uL (4.8-10.8)
[2023-12-08 03:59] LABS: ALBUMIN 1.4 g/dL (3.5-5.0); BILIRUBIN,TOTAL 0.3 mg/dL (0.2-1.0); CREATININE 1.7 mg/dL (0.5-1.0); MAGNESIUM 1.8 mg/dL (1.80-2.40); POTASSIUM 4.6 mmol/L (3.5-5.1); TOTAL PROTEIN, SERUM 4.7 g/dL (6.0-8.3)
[2023-12-08] MEDS ORDERED: IOHEXOL 350 MG/ML 100ML INFUS..BTL IV ONE (08:33)
[2023-12-08] MEDS ORDERED: LIDOCAINE HCL 400MG/20ML VIAL ONE (08:33)
[2023-12-08] MEDS ORDERED: NITROGLYCERIN 50MG VIAL ONE (08:34)
[2023-12-08] MEDS ORDERED: BIVALIRUDIN 250 MG/VIAL IV ONE (08:34)
[2023-12-08] MEDS ORDERED: HEParin-NS 1,000 UNIT/500 ML 1,000 ML IV ONE (08:34)
[2023-12-08] MEDS ORDERED: MIDAZOLAM HCL 1 MG/ML 2ML VIAL ONE (08:40)
[2023-12-08] MEDS ORDERED: FENTanyl CITRate PF 50 MCG/1 ML 2ML VIAL ONE (08:41)
[2023-12-08] MEDS ORDERED: hydrALAZine 20MG/ML VIAL ONE ×2 (09:01→09:17)
[2023-12-08] MEDS ORDERED: TICAGrelor 90 MG TABLET ONE (09:06)
[2023-12-08] MEDS ORDERED: ASPIRIN 325MG EC TAB PO ONE (09:06)
[2023-12-08] MEDS: ASPIRIN 81MG CHEW TAB PO SCH (10:00)
[2023-12-08] MEDS: FERROUS SULFATE 325 MG TABLET.DR PO SCH (10:38)
[2023-12-08] MEDS: 0.9%NACL 1000ML 1,000 ML IV SCH (10:39)
[2023-12-08 17:33] LABS: BASOPHILS # (AUTO) 0.01 K/uL (0.00-0.20); BASOPHILS % (AUTO) 0.1 % (0.0-5.0); EOSINOPHILS # (AUTO) 0.01 K/uL (0.00-0.70); EOSINOPHILS % (AUTO) 0.1 % (0.0-8.0); HEMATOCRIT 27.2 % (36-48); IMMATURE GRANULOCYTE ABSOLUTE 0.04 K/uL (0-1); LYMPHOCYTES # (AUTO) 0.6 K/uL (1.0-4.8); LYMPHOCYTES % (AUTO) 7.4 % (21.0-51.0); MEAN CORPUSCULAR HEMOGLOBIN 29.2 pg (27.0-33.0); MEAN CORPUSCULAR HGB CONC 33.1 g/dL (32.0-36.0); MEAN CORPUSCULAR VOLUME 88.3 fL (79-99); MONOCYTES # (AUTO) 0.2 K/uL (0.1-1.0); MONOCYTES % (AUTO) 2.7 % (3.0-13.0); NEUTROPHILS # (AUTO) 6.9 K/uL (1.8-7.7); NEUTROPHILS % (AUTO) 89.2 % (40.0-77.0); PLATELET COUNT (AUTO) 138 K/uL (130-400); RED BLOOD CELL COUNT(AUTO) 3.08 MIL/uL (4.00-5.50); RED CELL DISTRIBUTION WIDTH 14.5 % (11.0-15.5); WHITE BLOOD COUNT (AUTO) 7.8 K/uL (4.8-10.8)
[2023-12-08] MEDS: TICAGrelor 90 MG TABLET PO SCH (21:00)
[2023-12-08] MEDS: atorVAStatin 40 MG TABLET PO SCH (21:01)
[2023-12-09] VITALS (8 sets, daily range): BP systolic 135–171; BP diastolic 6–81; PULSE 69–74; RESP 18–20; TEMP 97.8–98.8; O2SAT 96
[2023-12-09 05:00] LABS: BASOPHILS # (AUTO) 0.04 K/uL (0.00-0.20); BASOPHILS % (AUTO) 0.5 % (0.0-5.0); EOSINOPHILS % (AUTO) 1.3 % (0.0-8.0); IMMATURE GRANULOCYTE ABSOLUTE 0.04 K/uL (0-1); LYMPHOCYTES # (AUTO) 0.9 K/uL (1.0-4.8); MEAN CORPUSCULAR HEMOGLOBIN 28.2 pg (27.0-33.0); MEAN CORPUSCULAR HGB CONC 32.3 g/dL (32.0-36.0); MEAN CORPUSCULAR VOLUME 87.2 fL (79-99); MONOCYTES # (AUTO) 0.8 K/uL (0.1-1.0); MONOCYTES % (AUTO) 9.7 % (3.0-13.0); PLATELET COUNT (AUTO) 128 K/uL (130-400); RED BLOOD CELL COUNT(AUTO) 2.98 MIL/uL (4.00-5.50); RED CELL DISTRIBUTION WIDTH 14.6 % (11.0-15.5); WHITE BLOOD COUNT (AUTO) 7.9 K/uL (4.8-10.8)
[2023-12-09 05:33] LABS: ALBUMIN 1.4 g/dL (3.5-5.0); BILIRUBIN,TOTAL 0.5 mg/dL (0.2-1.0); CREATININE 1.7 mg/dL (0.5-1.0); POTASSIUM 3.9 mmol/L (3.5-5.1); TOTAL PROTEIN, SERUM 4.8 g/dL (6.0-8.3)
[2023-12-09] MEDS: furoSEMIDE 20MG VIAL IV ONE ×2 (13:19→13:20)
[2023-12-09 15:20] LABS: CREATININE 1.7 mg/dL (0.5-1.0); POTASSIUM 4.3 mmol/L (3.5-5.1)
[2023-12-10 00:01] VITALS: BP 126/54; PULSE 70; RESP 18; TEMP 98.9
[2023-12-10 03:26] VITALS: BP 142/60; PULSE 72; RESP 18; TEMP 98.7
[2023-12-10 03:41] LABS: HEMATOCRIT 24.9 % (36-48); MEAN CORPUSCULAR HEMOGLOBIN 28.4 pg (27.0-33.0); MEAN CORPUSCULAR HGB CONC 32.1 g/dL (32.0-36.0); MEAN CORPUSCULAR VOLUME 88.3 fL (79-99); RED BLOOD CELL COUNT(AUTO) 2.82 MIL/uL (4.00-5.50); RED CELL DISTRIBUTION WIDTH 14.8 % (11.0-15.5); WHITE BLOOD COUNT (AUTO) 7.8 K/uL (4.8-10.8)
[2023-12-10 04:02] LABS: CREATININE 1.7 mg/dL (0.5-1.0)
[2023-12-10 08:00] VITALS: O2SAT 97
[2023-12-10 08:02] VITALS: BP 146/75; PULSE 69; RESP 18; TEMP 98.4
[2023-12-10] MEDS: PANTOPrazole 40 MG TAB DR PO SCH (11:04)
[2023-12-10 12:30] VITALS: BP 138/60; PULSE 68; RESP 18; TEMP 97.7
[2023-12-10] MEDS: LIDOCAINE 4% ADH..PATCH TP SCH (14:16)
[2023-12-10 16:51] VITALS: BP 143/64; PULSE 73; RESP 18; TEMP 97.9
== END 2023-12-10 17:36 | DRG 321 ==
LOC: EDH 20:48 → EDHIP 22:40 → OBSVTOIN 22:40 → 2DH 12-03 01:35
PROVIDERS: ADMIT Internal Medicine Pulmonary Disease; ATTEND Internal Medicine Pulmonary Disease
PROC: 4A023N7 Measurement of Cardiac Sampling and Pressure, Left Heart, Percutaneous Approach (ICD-10-PCS; 2023-12-06)
PROC: B2111ZZ Fluoroscopy of Multiple Coronary Arteries using Low Osmolar Contrast (ICD-10-PCS; 2023-12-06)
PROC: B2151ZZ Fluoroscopy of Left Heart using Low Osmolar Contrast (ICD-10-PCS; 2023-12-06)
PROC: 027034Z Dilation of Coronary Artery, One Artery with Drug-eluting Intraluminal Device, Percutaneous Approach (ICD-10-PCS; principal; 2023-12-08)
PROC: 30233N1 Transfusion of Nonautologous Red Blood Cells into Peripheral Vein, Percutaneous Approach (ICD-10-PCS; 2023-12-08)
DX: I21.4 Non-ST elevation (NSTEMI) myocardial infarction (principal); I50.33 Acute on chronic diastolic (congestive) heart failure; J96.01 Acute respiratory failure with hypoxia; I16.1 Hypertensive emergency; N17.9 Acute kidney failure, unspecified; I13.0 Hypertensive heart and chronic kidney disease with heart failure and stage 1 through stage 4 chronic kidney disease, or unspecified chronic kidney disease; Z20.822 Contact with and (suspected) exposure to COVID-19; I25.10 Atherosclerotic heart disease of native coronary artery without angina pectoris; N18.9 Chronic kidney disease, unspecified; E11.65 Type 2 diabetes mellitus with hyperglycemia; E87.5 Hyperkalemia; E11.22 Type 2 diabetes mellitus with diabetic chronic kidney disease; E78.00 Pure hypercholesterolemia, unspecified; E03.9 Hypothyroidism, unspecified; D63.1 Anemia in chronic kidney disease; E87.6 Hypokalemia; E11.51 Type 2 diabetes mellitus with diabetic peripheral angiopathy without gangrene; I70.8 Atherosclerosis of other arteries; E66.9 Obesity, unspecified; I65.23 Occlusion and stenosis of bilateral carotid arteries; E04.2 Nontoxic multinodular goiter; Z79.899 Other long term (current) drug therapy; Z90.710 Acquired absence of both cervix and uterus; Z68.32 Body mass index [BMI] 32.0-32.9, adult
CPT/HCPCS: 36415; 36430; 36600; 70450; 71045; 76700; 80048; 80053; 81001; 82270; 82435; 82728; 82803; 82947; 82948; 83036; 83540; 83550; 83605; 83735; 83880; 84100; 84132; 84295; 84443; 84484; 84550; 85018; 85025; 85027; 85610; 85730; 86850; 86900; 86901; 86923; 87635; 87804; 92920; 93005; 93306; 93356; 93458; 93880; 94640; 96374; 96375; 99156; 99157; 99291; A4344; C1760; C1769; C1887; C1894; C9600; G0378; J0360; J0583; J0612; J1644; J1815; J1940; J2250; J2405; J3010; J3475; J3490; J7070; P9016; Q9967; C1725; C1874; Q5106; Q9965

== ENCOUNTER 2024-03-02 23:11 | Observation (INO) | payer OTHER, MEDICARE ==
[~2024-03-02] VITALS: Ht 162.6 cm; Wt 73.8 kg
[~2024-03-02 23:11] MED LIST changes: -AMOX1TAB16 PO; -BENZ-39 PO; +CARV12.511 PO; +CYAN-106 PO; -EZET10TA48 PO; -FERR-72 PO; +FERR324T9 PO; +FERS325 PO; +FOLI0.4T6 PO; -FURO20TA4 PO; -OSEL75 PO
--- NOTE | 2024-03-02 23:25 | EKG ---
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
[2024-03-02 23:48] LABS: BASOPHILS # (AUTO) 0.04 K/uL (0.00-0.20); BASOPHILS % (AUTO) 0.7 % (0.0-5.0); EOSINOPHILS # (AUTO) 0.07 K/uL (0.00-0.70); EOSINOPHILS % (AUTO) 1.2 % (0.0-8.0); IMMATURE GRANULOCYTE ABSOLUTE 0.02 K/uL (0-1); LYMPHOCYTES # (AUTO) 1.5 K/uL (1.0-4.8); LYMPHOCYTES % (AUTO) 26.5 % (21.0-51.0); MEAN CORPUSCULAR HEMOGLOBIN 28.5 pg (27.0-33.0); MEAN CORPUSCULAR HGB CONC 32.7 g/dL (32.0-36.0); MONOCYTES # (AUTO) 0.6 K/uL (0.1-1.0); MONOCYTES % (AUTO) 10.8 % (3.0-13.0); NEUTROPHILS # (AUTO) 3.5 K/uL (1.8-7.7); NEUTROPHILS % (AUTO) 60.5 % (40.0-77.0); PLATELET COUNT (AUTO) 134 K/uL (130-400); RED BLOOD CELL COUNT(AUTO) 2.53 MIL/uL (4.00-5.50); RED CELL DISTRIBUTION WIDTH 15.3 % (11.0-15.5); WHITE BLOOD COUNT (AUTO) 5.7 K/uL (4.8-10.8)
[2024-03-03] VITALS (7 sets, daily range): BP systolic 110–171; BP diastolic 27–59; PULSE 66–77; RESP 16–20; TEMP 97.7–98.6; O2SAT 98
[2024-03-03 00:10] LABS: CREATININE 1.5 mg/dL (0.5-1.0); MAGNESIUM 1.9 mg/dL (1.80-2.40); POTASSIUM 5.5 mmol/L (3.5-5.1)
--- NOTE | 2024-03-03 00:12 | HMCIMG ---
CHEST 1VW HISTORY: Shortness of breath COMPARISON: 12/09/2023 FINDINGS: A frontal projection of the chest was obtained. Mild bilateral pulmonary infiltrates are seen may be related to mild pulmonary vascular congestion with possible superimposed pneumonitis. The heart is borderline enlarged. Degenerative changes are seen. Aortic calcifications are seen. IMPRESSION: 1. Mild bilateral pulmonary infiltrates are seen may be related to mild pulmonary vascular congestion with possible superimposed pneumonitis.
[2024-03-03 00:20] LABS: B-TYPE NATRIURETIC PEPTIDE 1220 pg/mL (0-100)
[2024-03-03] MEDS: hydrALAZine 20MG/ML VIAL IV ONE (00:30)
[2024-03-03 00:32] LABS: APPEARANCE,URINE CLEAR (CLEAR); BILIRUBIN,URINE NEGATIVE (NEGATIVE); COLOR,URINE LIGHT-YELLOW (YELLOW); GLUCOSE, URINE (UA) >=1000 mg/dL (NEGATIVE); KETONES,URINE NEGATIVE (NEGATIVE); LEUKOCYTE ESTERASE ,URINE NEGATIVE Leu/uL (NEGATIVE); NITRATE,URINE NEGATIVE (NEGATIVE); OCCULT BLOOD,URINE NEGATIVE (NEGATIVE); PH,URINE 5.5 (5.0-8.0); PROTEIN,URINE 200 mg/dL (NEGATIVE); UROBILINOGEN,URINE 0.2 mg/dL (0.2-1.0)
[2024-03-03 00:33] LABS: ADD UA MICROSCOPIC YES
[2024-03-03] MEDS: CALCIUM GLUC 1GM 1 GM in 0.9%NACL 100ML 100 ML IV ONE (00:55)
[2024-03-03] MEDS: DEXTROSE 50%-WATER 50 ML DISP.SYRIN IV ONE (00:55)
[2024-03-03 00:57] LABS: RBC,URINE 0-1 /HPF (0-1); SQUAMOUS EPITHELIAL CELL,UR RARE /HPF (0-2); WBC,URINE 0-1 /HPF (0-1)
[2024-03-03] MEDS ORDERED: DEXTROSE 50%-WATER 25 GM/50 ML VIAL IV ONE (01:00)
[2024-03-03] MEDS: INSULIN humuLIN R 100 UNIT/ML 3ML IV ONE (01:01)
[2024-03-03] MEDS: acetaMINOPHEN 325 MG TAB PO ONE (01:06)
[2024-03-03] MEDS: NITROGLYCERIN 0.4 MG SL TAB SL PRN (01:27)
--- NOTE | 2024-03-03 01:34 | ERN ---
General Chief Complaint: Upper Extremity Pain/Injury Stated Complaint: C/O PAIN TO LEFT ARM WITH HIGH B/P Time Seen by MD: 23:16 Time Seen by Midlevel: 23:16 Source: patient History of Present Illness Initial Comments Patient is a 78-year-old female with a past medical history of chronic kidney disease, hypertension, type 2 diabetes, hyperlipidemia, and coronary artery disease presenting to the emergency department with left-sided chest pain that radiates to her left arm. She reports taking her blood pressure at home and it was elevated over 180 systolic so she was started to report to the ER for further evaluation. Patient is currently on carvedilol, clonidine, hydralazine, and isosorbide for blood pressure. She reports taking her medication as prescribed today. Allergies: Coded Allergies: No Known Drug Allergies (Unverified Allergy, Unknown, 07/16/22) Home Meds Reported Medications Cyanocobalamin (Vitamin B-12) (Vitamin B12) 1,000 Mcg Tablet, 1000 MCG PO DAILY, TAB 12/03/23 Ferrous Sulfate (Ferrous Sulfate) 325 Mg (65 Mg Iron) Ectab, 325 MG PO DAILY, TAB.EC 12/03/23 Folic Acid (Folic Acid) 0.4 Mg Tablet, 0.4 MG PO DAILY, TAB 12/03/23 Carvedilol (Carvedilol) 12.5 Mg Tablet, 12.5 MG PO BID, TAB 12/03/23 Ferrous Fumarate (Ferrocite) 324 Mg (106 Mg Iron) Tablet, 324 MG PO AD, TAB 12/03/23 Isosorbide Mononitrate (Isosorbide Mononitrate) 10 Mg Tablet, 10 MG PO PM, TAB 07/17/22 Linagliptin (Tradjenta) 5 Mg Tablet, 5 MG PO DAILY, TAB 07/17/22 Lisinopril (Lisinopril) 40 Mg Tablet, 40 MG PO DAILY, TAB 07/17/22 Rosuvastatin Calcium (Rosuvastatin Calcium) 10 Mg Tablet, 10 MG PO DAILY, TAB 07/17/22 Levothyroxine Sodium (Levothroid/Synthroid) 75 Mcg Tab, 75 MCG PO DAILY, TAB 07/17/22 Past Medical History Past Medical History: High Cholesterol, Hypertension Past Surgical History: Other Family History Family History: Negative Social History Social History: Negative Female( History) History: Not Applicable ROS Dictation CONSTITUTIONAL: Negative except for HPI HEAD/FACE: Negative except for HPI EENT: Negative except for HPI RESPIRATORY: Negative except for HPI GASTROINTESTINAL/ABDOMINAL: Negative except for HPI GENITOURINARY: Negative except for HPI MUSCULOSKELETAL: Negative except for HPI INTEGUMENTARY: Negative except for HPI NEUROLOGICAL/PSYCH: Negative except for HPI HEMATOLOGIC/LYMPHATIC: Negative except for HPI All Systems Negative, Except as noted above. 13 point review of systems assessed and all negative except for above. Physical Exam Physical Exam Dictation Vital Signs reviewed General Appearance: Alert, oriented x 3, no acute distress, well developed, nourished. Head and Face: non-traumatic. Eyes: PERRL, pink conjunctivas, eyelid no trauma, anterior chamber with arcus senilis. Ears: Pinnas intact and no signs of trauma or erythema ear canals clear and no discharge TM no erythema Nose: No discharge, no bleeding. Oropharynx: Mouth normal, tongue pink, pharynx clear,no erythema, tonsils no exudates, no abscesses noted, mucous membrane moist Neck: Supple, non-tender, no thyromegaly, no masses, no JVD, no bruits Breast:Deferred Chest:No tenderness, no crepitus, no paradoxical movement, no retractions Lungs:Clear, well-ventilated, symmetric, no rales, no wheezing, no rhonchi, no stridor, good breath sounds bilaterally Heart: Regular rate, regular rhythm, no murmur, no gallops Vascular: no peripheral edema, Abdomen: Soft, positive bowel sounds, nondistended, no guarding, nontender, no rebound, no masses no hepatomegaly, no splenomegaly, no Dumont's sign, no hernias. Rectal: Deferred Genital: Deferred Neurological: Normal speech, motor function intact, sensory function intact Musculoskeletal: Neck nontender, full range of motion, back nontender, full range of motion, Extremities: nontender, full range of motion Skin: Color pink, dry, no turgor, no rash, no lacerations, no abrasions, no contusions. Lymphatic: Deferred Results Laboratory and Microbiology Lab and Micro Result Laboratory Tests Test 03/02/24 23:39 03/03/24 00:14 03/03/24 00:59 03/03/24 01:26 White Blood Count 5.7 K/uL (4.8-10.8) Red Blood Count 2.53 MIL/uL (4.00-5.50) L Hemoglobin 7.2 g/dL (12.0-16.0) L Hematocrit 22.0 % (36-48) L Mean Corpuscular Volume 87.0 fL (79-99) Mean Corpuscular Hemoglobin 28.5 pg (27.0-33.0) Mean Corpuscular Hemoglobin Concent 32.7 g/dL (32.0-36.0) Red Cell Distribution Width 15.3 % (11.0-15.5) Platelet Count 134 K/uL (130-400) Mean Platelet Volume 12.0 fL (7.5-10.5) H Immature Granulocyte % (Auto) 0.3 % (0-1) Neutrophils (%) (Auto) 60.5 % (40.0-77.0) Lymphocytes (%) (Auto) 26.5 % (21.0-51.0) Monocytes (%) (Auto) 10.8 % (3.0-13.0) Eosinophils (%) (Auto) 1.2 % (0.0-8.0) Basophils (%) (Auto) 0.7 % (0.0-5.0) Neutrophils # (Auto) 3.5 K/uL (1.8-7.7) Lymphocytes # (Auto) 1.5 K/uL (1.0-4.8) Monocytes # (Auto) 0.6 K/uL (0.1-1.0) Eosinophils # (Auto) 0.07 K/uL (0.00-0.70) Basophils # (Auto) 0.04 K/uL (0.00-0.20) Absolute Immature Granulocyte (auto 0.02 K/uL (0-1) Nucleated Red Blood Cells 0.0 % (0.0-0.19) Sodium Level 134 mmol/L (136-145) L Potassium Level 5.5 mmol/L (3.5-5.1) H Chloride Level 105 mmol/L (101-111) Carbon Dioxide Level 23 mmol/L (21-32) Blood Urea Nitrogen 40 mg/dL (7-18) H Creatinine 1.5 mg/dL (0.5-1.0) H Glomerular Filtration Rate Calc 36 mL/min (>90) Random Glucose 141 mg/dL (70-105) H Total Calcium 8.3 mg/dL (8.5-10.1) L Magnesium Level 1.90 mg/dL (1.80-2.40) Total Creatine Kinase 97 U/L (21-232) Troponin I High Sensitivity 14 ng/L (4-50) 15 ng/L (4-50) B-Type Natriuretic Peptide 1220 pg/mL (0-100) H Urine Color LIGHT-YELLOW (YELLOW) Urine Appearance CLEAR (CLEAR) Urine pH 5.5 (5.0-8.0) Urine Specific Reading 1.008 (1.001-1.031) Urine Protein 200 mg/dL (NEGATIVE) H Urine Glucose (UA) >=1000 mg/dL (NEGATIVE) H Urine Ketones NEGATIVE mg/dL (NEGATIVE) Urine Occult Blood NEGATIVE (NEGATIVE) Urine Nitrate NEGATIVE (NEGATIVE) Urine Bilirubin NEGATIVE mg/dL (NEGATIVE) Urine Urobilinogen 0.2 mg/dL (0.2-1.0) Urine Leukocyte Esterase NEGATIVE Sam/uL Urine RBC 0-1 /HPF (0-1) Urine WBC 0-1 /HPF (0-1) Urine Squamous Epithelial Cells RARE /HPF (0-2) Urine Bacteria None /HPF (None Seen) Whole Blood Glucose 152 MG/DL (70-110) H Labs Reviewed?: Yes MDM MDM: Differential diagnosis: ACS, electrolyte abnormality, dehydration Rationale: Tests considered and ordered secondary to shared decision making include: Previous outside records reviewed: Old ER visits. Risk of complication and/or morbidity or mortality of patient management: None Medications-Per medication reconciliation Need for hospitalization: Patient does meet criteria for hospitalization. Need for emergency major/minor surgery: No There are no social concerns with this patient. Prescription drug management Prescriptions will include symptomatic care Patient's prior external medical records from other ER visits were reviewed by me as indicated. Prior testing and results from previous visits were reviewed. Prior tests were taken into account with medical decision making and resource utilization, independent historian/historians were used to obtain complete medical history. I independently interpreted the test that were performed, results were reviewed by me and considered findings on radiology if ordered. Medical management and examination interpretation discussions were had by me with other qualified healthcare professionals as indicated for the patient's care. ED Course Orders Procedure Category Date Status Time 12 Lead Ekg Tracing- EKG 03/02/24 Complete Technical 23:17 Basic Metabolic Panel LAB 03/02/24 Complete 23:24 B-Type Natriuretic LAB 03/02/24 Complete Peptide 23:24 Cbc With Differential LAB 03/02/24 Complete 23:24 Magnesium LAB 03/02/24 Complete 23:24 Troponin I High LAB 03/02/24 Complete Sensitivity 23:24 Urinalysis Profile LAB 03/02/24 Complete 23:24 Chest 1vw RAD 03/02/24 Resulted 23:24 Creatine Kinase, Total LAB 03/02/24 Complete 23:24 Hydralazine 20mg Inj PHA 03/02/24 Complete (Apresoline 20mg In 23:30 Calcium Gluc 1gm PHA 03/03/24 Complete (Calcium Gluc 1gm 01:00 Dextrose 50%-Water PHA 03/03/24 Complete (Dextrose 50%-Water) 01:00 Insulin Regular, PHA 03/03/24 Complete Human 3ml (Humulin R 01:00 Dextrose 50%-Water PHA 03/03/24 Complete (D50w) 01:00 Acetaminophen 325 Tab PHA 03/03/24 Complete (Tylenol 325mg Tab 01:30 Nitroglycerin 0.4mg PHA 03/03/24 In Process Sl Tab (Nitrostat) 01:30 Troponin I High LAB 03/03/24 Complete Sensitivity 01:20 Furosemide 20mg Vial PHA 03/03/24 Complete (Lasix 20mg Vial) 02:00 Basic Metabolic Panel LAB 03/03/24 Logged 04:00 Current Medications Medications (Trade) Dose Ordered Sig/Kimberly Route PRN Reason Start Time Stop Time Status Last Admin Dose Admin Acetaminophen (TYLenol 325MG TAB) 650 mg ONCE ONCE PO 03/03/24 01:30 03/03/24 01:31 DC 03/03/24 01:06 Calcium Gluconate 1 gm/Sodium Chloride 110 ml @ 110 mls/hr ONCE ONCE IV 03/03/24 01:00 03/03/24 01:59 DC 03/03/24 00:55 Dextrose (D50w) 50 ml ONCE ONCE IV 03/03/24 01:00 03/03/24 01:01 DC 03/03/24 00:55 Dextrose (Dextrose 50%-Water) 25 gm ONCE ONCE IV 03/03/24 01:00 03/03/24 00:47 DC Hydralazine HCl (APRESOLine 20MG INJ) 10 mg ONCE ONCE IV 03/02/24 23:30 03/02/24 23:31 DC 03/03/24 00:30 Insulin Human Regular (humuLIN R 100 UNIT/ML 3ML) 5 unit ONCE ONCE IV 03/03/24 01:00 03/03/24 01:01 DC 03/03/24 01:01 Nitroglycerin (Nitrostat) 0.4 mg AD PRN SL CHEST PAIN 03/03/24 01:30 04/02/24 01:29 03/03/24 01:27 Vital Signs Date Time Temp Pulse Resp B/P (MAP) Pulse Ox O2 Delivery O2 Flow Rate FiO2 03/03/24 01:27 84 18 149/48 99 Room Air* 0 03/02/24 23:57 98.1 75 18 177/54 99 Room Air* 0 03/02/24 23:13 97.5 71 20 191/58 98 Room Air HEART Score Response (Comments) Value History: Moderate suspicion (+1) 1 EKG: Repolarization changes 1 Age: > 65yrs (+2) 2 Risk Factors: 3+ risk factors (+2) 2 Initial Troponin: Normal limit (0) 0 HEART Score Risk: Mod Risk for MACE (4-6) Total 6 DX & DISP Disposition: Inpatient Decision to Admit Date: Mar 03, 2024 Departure Impression: Primary Impression: Hypertensive urgency Additional Impressions: Hyperkalemia, Chest pain Condition: Stable Referrals: BATSHEVA LINDSEY M.D. (PCP) I have reviewed the case, and I agree with, Diagnosis and Plan I performed the substantive portion of the visit. I have reviewed and personally made and approve the management plan that is documented in the note by myself or the ELIZABETH. I acknowledge for responsibility for the patient's management plan. BECK LOVE Mar 03, 2024 01:34
[2024-03-03] MEDS ORDERED: ALBUTEROL 0.083% 2.5 MG/3 ML INH IH PRN (02:00)
[2024-03-03] MEDS ORDERED: GLUCAGON 1MG KIT 1 MG ML IM PRN (02:00)
[2024-03-03] MEDS ORDERED: cloNIDine HCL 0.1 MG TABLET PO PRN (02:00)
[2024-03-03] MEDS ORDERED: DEXTROSE 50%-WATER 50 ML DISP.SYRIN IV PRN (02:00)
[2024-03-03] MEDS ORDERED: LACTULOSE 20 GM/30 ML UDCUP PO PRN (02:00)
[2024-03-03] MEDS ORDERED: hydrALAZine 20MG/ML VIAL IV PRN (02:00)
[2024-03-03] MEDS ORDERED: LAbetaLOL 20MG SYG IV PRN (02:00)
[2024-03-03 02:11] LABS: INR 1.06 (0.85-1.15); PROTHROMBIN TIME 11.4 SEC (9.6-11.6)
[2024-03-03 02:13] LABS: PARTIAL THROMBOPLASTIN TIME 25.7 SEC (26.3-35.5)
[2024-03-03] MEDS: furoSEMIDE 20MG VIAL IV ONE (02:47)
--- NOTE | 2024-03-03 03:09 | NUR ---
CHERY MCKEE MADE AWARE OF CRITICAL LAB OF D-DIMER 1841, ORDERS GIVEN TO REPEAT BMP AT 0400 TO EVALUATE KIDNEY FUNCTION FOR CTA CHEST. NO FURTHER ORDERS GIVEN AT THIS TIME./ALIVIA
[2024-03-03] MEDS: acetaMINOPHEN 325 MG TAB PO PRN (04:55)
[2024-03-03 06:00] LABS: BASOPHILS # (AUTO) 0.04 K/uL (0.00-0.20); BASOPHILS % (AUTO) 0.6 % (0.0-5.0); EOSINOPHILS # (AUTO) 0.06 K/uL (0.00-0.70); EOSINOPHILS % (AUTO) 0.9 % (0.0-8.0); HEMATOCRIT 21.8 % (36-48); IMMATURE GRANULOCYTE ABSOLUTE 0.02 K/uL (0-1); LYMPHOCYTES # (AUTO) 1.7 K/uL (1.0-4.8); MEAN CORPUSCULAR HEMOGLOBIN 28.5 pg (27.0-33.0); MEAN CORPUSCULAR HGB CONC 32.6 g/dL (32.0-36.0); MEAN CORPUSCULAR VOLUME 87.6 fL (79-99); MONOCYTES # (AUTO) 0.5 K/uL (0.1-1.0); NEUTROPHILS # (AUTO) 4.5 K/uL (1.8-7.7); NEUTROPHILS % (AUTO) 66.2 % (40.0-77.0); PLATELET COUNT (AUTO) 145 K/uL (130-400); RED BLOOD CELL COUNT(AUTO) 2.49 MIL/uL (4.00-5.50); RED CELL DISTRIBUTION WIDTH 15.3 % (11.0-15.5); WHITE BLOOD COUNT (AUTO) 6.7 K/uL (4.8-10.8)
[2024-03-03] MEDS ORDERED: TRAZ-185 PO (06:19)
[2024-03-03] MEDS ORDERED: VITAD50000 PO (06:19)
[2024-03-03] MEDS ORDERED: SACU1TAB7 PO (06:19)
[2024-03-03] MEDS ORDERED: FOLI1TAB82 PO (06:19)
[2024-03-03] MEDS ORDERED: CLOP75TA32 PO (06:19)
[2024-03-03] MEDS ORDERED: ASPI-1197 PO (06:19)
[2024-03-03] MEDS ORDERED: ATOR40TA69 PO (06:19)
[2024-03-03] MEDS ORDERED: CLON0.2T PO (06:19)
[2024-03-03] MEDS ORDERED: DAPA5TAB PO (06:19)
[2024-03-03] MEDS ORDERED: ISOS10TA8 PO (06:19)
[2024-03-03] MEDS ORDERED: HYDR50TA37 PO (06:19)
[2024-03-03] MEDS ORDERED: NIFE-40 PO (06:19)
[2024-03-03 06:20] LABS: % IRON SATURATION 29.9 % (22-44)
[2024-03-03 06:32] LABS: CREATININE 1.5 mg/dL (0.5-1.0); MAGNESIUM 1.9 mg/dL (1.80-2.40); PHOSPHORUS 3.5 mg/dL (2.5-4.9); POTASSIUM 5.1 mmol/L (3.5-5.1); THYROID STIMULATING HORMONE 2.93 uIU/mL (0.36-3.74)
--- NOTE | 2024-03-03 06:33 | NUR ---
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
[2024-03-03] MEDS: INSULIN humuLIN R 100 UNIT/ML 3ML SQ SCH (06:42)
--- NOTE | 2024-03-03 06:45 | NUR ---
ASSESSMENT/SKIN BRUISING IS NOTED TO UPPER EXTREMITIES, STATES TAKES MEDICATION THAT CAUSES HER TO BRUISE EASILY. Addendum: 03/03/24 at 0756 by FARA HOPSON RN RN Amended: Links added.
--- NOTE | 2024-03-03 07:46 | EKG ---
[facility] Test Date: 2024-03-03 Test Time: 00:50:32 Pat Name: WILLIAM CHOPRA Department: 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
[2024-03-03] MEDS: polyETHYLene GLYCol 3350 17 GM POWD.PACK PO SCH (09:00)
[2024-03-03] MEDS: PANTOPrazole 40 MG TAB DR PO SCH (09:00)
[2024-03-03] MEDS: ENOXAPARIN SODIUM 30 MG/0.3 ML SQ SCH (09:48)
--- NOTE | 2024-03-03 17:19 | HMCIMG ---
NM PULMONARY/LUNG VENT/PERF VQ HISTORY: Shortness of breath COMPARISON: None TECHNIQUE: Ventilation study was performed with 3 mCi of Xenon gas through inhalation route. Perfusion lung imaging study was performed with 5 mCi of technetium macroaggregated through intravenous route. FINDINGS: There is no evidence of segmental or subsegmental perfusion defect. Nonsegmental perfusion defects are also present. IMPRESSION: 1. Low probability for pulmonary embolus.
--- NOTE | 2024-03-03 18:57 | HP ---
[facility] HISTORY & PHYSICAL Date Patient Seen: Mar 03, 2024 Time of Visit: 1250 Supervising Physician: Primary Care Physician: Dr. Lucita Arredondo Outpatient Specialists: [ ] Inpatient Consults: [ ] PROBLEM LIST: Atypical chest pain Hypertension urgency Acute hyperkalemia Heart failure preserved ejection fraction 50% with a stage II diastolic dysfunction as per echocardiogram 12/03/2023 Pulmonary hypertension RVSP 47.6 mmHg per echocardiogram 12/03/2023 Acute on chronic kidney disease Diabetes mellitus type 2 with hyperglycemia Anemia of chronic disease Hyperlipidemia Hypothyroidism HPI: Patient is a 78-year-old female with a past medical history of chronic kidney disease, hypertension, type 2 diabetes, hyperlipidemia, and coronary artery disease presenting to the emergency department with left-sided chest pain that radiates to her left arm. She reports taking her blood pressure at home and it was elevated over 180 systolic so she was started to report to the ER for further evaluation. Patient is currently on carvedilol, clonidine, hydralazine, and isosorbide for blood pressure. She reports taking her medication as prescribed today. Patient was seen and examined at bedside with no family present. Patient is awake alert able to answer simple questions appropriately. At time of visit patient denies any reoccurrence chest pain. Denies any shortness of breadth. Chest pain is reproducible with palpitation. Patient denies nausea vomiting or abdominal pain. Patient's troponin levels have been negative. Patient's EKG normal sinus rhythm. We will continue to monitor patient closely if no acute events occurred overnight plan is for possible a.m. discharge. Plan summary Continue [id number] mg daily Continue atorvastatin 40 mg q.h.s. Continue clonidine 0.2 mg b.i.d. Continue [id number] mg daily Continue Farxiga5 mg daily Continue hydralazine 50 mg b.i.d. Continue isosorbide 10 mg q.h.s. Continue nifedipine 30 mg daily We will hold the patient's Entresto at this time due to elevated potassium level upon admission Continue carvedilol 12.5 mg daily PAST MEDICAL HX: see above PAST SURGICAL HX: noncontributory SOCIAL HISTORY: No tobacco, ETOH, or illicit drug use Coded Allergies: No Known Drug Allergies (Unverified Allergy, Unknown, 07/16/22) REVIEW OF SYSTEMS: 12 point ROS reviewed with patient. Pertinent positives mentioned above. Otherwise negative. PHYSICAL EXAM: GENERAL: alert, weak, awake oriented x 3 HEENT: EOMI, Sclera non icteric, moist mucosa NECK: Supple, no JVD, trachea midline LUNGS: Clear breath sounds bilaterally. No wheezes HEART: Regular rate and rhythm. Normal S1 and S2, without murmurs ABD: Abdomen soft, nontender. Bowel sounds present EXT: No clubbing cyanosis or edema NEURO: Alert and oriented to person, follows commands Vital Signs (last 8hr) Date Time Temp Pulse Resp B/P (MAP) Pulse Ox O2 Delivery O2 Flow Rate FiO2 03/03/24 15:37 98.2 67 19 126/42 99 Room Air 03/03/24 10:51 98.6 67 20 110/45 98 Room Air LABS: Hematology Labs: Test 03/03/24 05:30 Range/Units White Blood Count 6.7 4.8-10.8 K/uL Red Blood Count 2.49 L 4.00-5.50 MIL/uL Hemoglobin 7.1 L 12.0-16.0 g/dL Hematocrit 21.8 L 36-48 % Mean Corpuscular Volume 87.6 79-99 fL Mean Corpuscular Hemoglobin 28.5 27.0-33.0 pg Mean Corpuscular Hemoglobin Concent 32.6 32.0-36.0 g/dL Red Cell Distribution Width 15.3 11.0-15.5 % Platelet Count 145 130-400 K/uL Mean Platelet Volume 12.1 H 7.5-10.5 fL Immature Granulocyte % (Auto) 0.3 0-1 % Neutrophils (%) (Auto) 66.2 40.0-77.0 % Lymphocytes (%) (Auto) 25.0 21.0-51.0 % Monocytes (%) (Auto) 7.0 3.0-13.0 % Eosinophils (%) (Auto) 0.9 0.0-8.0 % Basophils (%) (Auto) 0.6 0.0-5.0 % Neutrophils # (Auto) 4.5 1.8-7.7 K/uL Lymphocytes # (Auto) 1.7 1.0-4.8 K/uL Monocytes # (Auto) 0.5 0.1-1.0 K/uL Eosinophils # (Auto) 0.06 0.00-0.70 K/uL Basophils # (Auto) 0.04 0.00-0.20 K/uL Absolute Immature Granulocyte (auto 0.02 0-1 K/uL Nucleated Red Blood Cells 0.0 0.0-0.19 % Chemistry Labs: Test 03/03/24 15:16 03/03/24 05:30 03/03/24 01:26 03/02/24 23:39 Range/Units Whole Blood Glucose 135 H 70-110 MG/DL Sodium Level 138 136-145 mmol/L Potassium Level 5.1 3.5-5.1 mmol/L Chloride Level 108 101-111 mmol/L Carbon Dioxide Level 24 21-32 mmol/L Blood Urea Nitrogen 37 H 7-18 mg/dL Creatinine 1.5 H 0.5-1.0 mg/dL Glomerular Filtration Rate Calc 36 >90 mL/min Random Glucose 149 H 70-105 mg/dL Total Calcium 8.5 8.5-10.1 mg/dL Phosphorus Level 3.5 2.5-4.9 mg/dL Magnesium Level 1.90 1.80-2.40 mg/dL Iron Level 56 # 50-170 mcg/dL Total Iron Binding Capacity 187 L 250-450 mcg/dL Percent Iron Saturation 29.9 22-44 % Thyroid Stimulating Hormone (TSH) 2.93 # 0.36-3.74 uIU/mL Troponin I High Sensitivity 15 4-50 ng/L Total Creatine Kinase 97 21-232 U/L B-Type Natriuretic Peptide 1220 H 0-100 pg/mL Coagulation Labs: Test 03/02/24 23:39 Range/Units Prothrombin Time 11.4 9.6-11.6 SEC Prothromb Time International Ratio 1.06 0.85-1.15 Activated Partial Thromboplast Time 25.7 L 26.3-35.5 SEC D-Dimer Quantitative (PE/DVT) 1841 *H 0-500 ng/mL DIAGNOSTICS / RADIOLOGY RESULTS: na PLAN NEURO: Minimize central acting medications as possible. Maintain fall precautions, adequate lighting during the day PULMONARY: Supplemental 02 as needed. Maintain aspiration precautions at all times CARDIOVASCULAR: Follow hemodynamics. Vital signs per facility protocol GI & NUTRITION: Continue with nutritional support. Continue stool softeners and laxatives as needed. KIDNEYS & ELECTROLYTES: Strict monitoring of intake, output and overall fluid balance. Avoid nephrotoxic medications to the extent possible. Medications to be dosed according to renal function. Monitor electrolytes and replace as needed ENDOCRINE: Maintain blood glucose between 100-180 at all times. Hypoglycemia protocol in place INFECTIOUS DISEASE: Trend temperature, WBC and procalcitonin level Follow cultures, deescalate antibiotics as soon as possible. Panculture if new onset fever ONCOLOGY/HEMATOLOGY/COAGULATION: Monitor for s/s of bleeding Monitor hemoglobin, coagulation studies as needed SKIN: Pressure ulcer prevention per facility protocol Specialty mattress ORTHO/REHAB: Continue PT/OT Prophylaxis: Continue GI and DVT prophylaxis Code Status: Full Resuscitation Disposition: TBD Other: Case discussed with supervising physician plan of care agreed upon NIKA VEGA Mar 03, 2024 18:57
[2024-03-03] MEDS ORDERED: trAZOdone HCL 50 MG TAB PO PRN (19:00)
[2024-03-03] MEDS: ISOSORBIDE MONONITRATE 20 MG TABLET PO SCH (21:26)
[2024-03-03] MEDS: carVEDIlol 12.5 MG TABLET PO SCH (21:29)
[2024-03-03] MEDS: atorVAStatin 40 MG TABLET PO SCH (21:30)
[2024-03-03] MEDS: hydrALAZine 25MG TABLET PO SCH (21:30)
[2024-03-03] MEDS: nifeDIPine ER 30 MG TAB PO SCH (21:30)
[2024-03-04 03:24] VITALS: BP 150/41; PULSE 64; RESP 18; TEMP 97.7
[2024-03-04 06:59] VITALS: PULSE 75; RESP 18; O2SAT 97
[2024-03-04 08:00] VITALS: BP 185/45; PULSE 67; RESP 17; TEMP 98.4; O2SAT 99
[2024-03-04] MEDS: cloPIDOgrel 75MG TAB PO SCH (08:37)
[2024-03-04] MEDS: ASPIRIN 81MG CHEW TAB PO SCH (08:37)
[2024-03-04] MEDS: Vitamin B Complex/Vit C/Folic Acid PO SCH (08:38)
[2024-03-04] MEDS: cloNIDine HCL 0.2 MG TABLET PO SCH (08:38)
[2024-03-04] MEDS: DAPAGLIFLOZIN PROPANEDIOL 5 MG PO SCH (08:43)
[2024-03-04 12:25] VITALS: BP 124/40
[2024-03-04] MEDS: MAGNESIUM 2GM PREMIX 50ML 50 ML IV PRN (12:30)
--- NOTE | 2024-03-04 16:25 | DS ---
[facility] DISCHARGE SUMMARY Date Patient Seen: Mar 04, 2024 Time of Visit: 1208 Supervising Physician: Dr. El Primary Care Physician: Dr. Lucita Arredondo Outpatient Specialists: [ ] Inpatient Consults: [ ] PROBLEM LIST: Atypical chest pain, resolved Hypertension urgency, resolved Acute hyperkalemia, resolved Heart failure preserved ejection fraction 50% with a stage II diastolic dysfunction as per echocardiogram 12/03/2023 Pulmonary hypertension RVSP 47.6 mmHg per echocardiogram 12/03/2023 Acute on chronic kidney disease Diabetes mellitus type 2 with hyperglycemia Anemia of chronic disease Hyperlipidemia Hypothyroidism HOSPITAL COURSE: HPI (per admitting provider)Patient is a 78-year-old female with a past medical history of chronic kidney disease, hypertension, type 2 diabetes, hyperlipidemia, and coronary artery disease presenting to the emergency department with left-sided chest pain that radiates to her left arm. She reports taking her blood pressure at home and it was elevated over 180 systolic so she was started to report to the ER for further evaluation. Patient is currently on carvedilol, clonidine, hydralazine, and isosorbide for blood pressure. She reports taking her medication as prescribed today. Patient was seen and examined at bedside with no family present. Patient is awake alert able to answer simple questions appropriately. Patient denies any reoccurrence chest pain. Patient denies nausea vomiting or abdominal pain. Patient is tolerating p.o. diet well. Patient is having bowel movements. Patient's V/Q scan low probability for PE. Instructed patient will be getting discharged today and will need to follow up with PCP within 3-5 days upon discharge, along with following up with Cardiology within 3-5 days upon discharge. Patient voices understanding has no questions at this time. 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 Continued Medications: Aspirin (Aspirin) 81 Mg Tab.chew 81 MG PO DAILY, TAB.CHEW Atorvastatin Calcium (Lipitor) 40 Mg Tablet 40 MG PO HS, TAB Carvedilol (Carvedilol) 12.5 Mg Tablet 12.5 MG PO BID, TAB Cholecalciferol (Vitamin D3) 1,250 Mcg (79926 Unit) Cap 75523 UNITS PO QWEEK, CAP Clonidine HCl (Clonidine HCl) 0.2 Mg Tablet 0.2 MG PO BIDMEALS, TAB Clopidogrel Bisulfate (Clopidogrel) 75 Mg Tablet 75 MG PO DAILY, TAB Dapagliflozin Propanediol (Farxiga) 5 Mg Tablet 5 MG PO DAILY, TAB Hydralazine HCl (Hydralazine HCl) 50 Mg Tablet 50 MG PO BID, TAB Isosorbide Mononitrate (Isosorbide Mononitrate) 10 Mg Tablet 10 MG PO HS, TAB Nifedipine (Nifedipine ER) 30 Mg Tab.er.24 30 MG PO HS Sacubitril/Valsartan (Entresto 49 mg-51 mg Tablet) 49 Mg-51 Mg Tablet 1 TAB PO BID for 30 Days, #60 TAB 0 Refills Trazodone HCl (Trazodone HCl) 50 Mg Tablet 50 MG PO HSPRN PRN for SLEEP, TAB Vit B Cmplx No3/FA/C/Biot/Zinc (Nephplex Rx Tablet) 1 Mg-60 Mg-300 Mcg-12.5 Mg Tablet 1 TAB PO DAILY for 30 Days, #30 TAB 0 Refills PHYSICAL EXAM: GENERAL: alert, weak, awake oriented x 3 HEENT: EOMI, Sclera non icteric, moist mucosa NECK: Supple, no JVD, trachea midline LUNGS: Clear breath sounds bilaterally. No wheezes HEART: Regular rate and rhythm. Normal S1 and S2, without murmurs ABD: Abdomen soft, nontender. Bowel sounds present EXT: No clubbing cyanosis or edema NEURO: Alert and oriented to person, follows commands FOLLOW-UP: Follow-up with PCP in 2-3 days Follow up with Cardiology within 3-5 days upon discharge RECOMMENDATIONS: See Discharge Instructions This case was seen and discussed with my supervising physician. 30 minutes spent on discharge process, including evaluation of the patient, discussion with nursing staff, medication reconciliation and follow-up appointments NIKA VEGA Mar 04, 2024 16:25
[2024-03-04 16:59] VITALS: BP 118/61; PULSE 61; RESP 20; TEMP 98.1
--- NOTE | 2024-03-04 19:10 | NUR ---
DC NOTE DC INSTRUCTIONS AND FOLLOW UP APPOINTMENT TO BE CALLED WITH PT'S CARDIOLOGY AND PRIMARY PHYSICIAN, VERBALIZED UNDERSTANDING. PIV AND TELE MONITOR REMOVED, CATHETER INTACT, DENIES ANY PAIN OR DISCOMFORT. PT WAS EAGER TO BE DC. PT IS WHEELED DOWNSTAIRS WITH STRATEGIC PLANNING ANALYST INTO VIA PRIVATE CAR. NO FURTHER COMMENTS OR CONCERNS AT THIS TIME.
[2024-03-05] MEDS ORDERED: DAPA5TAB PO (13:53)
[2024-03-05] MEDS ORDERED: FERR324T9 PO (13:53)
[2024-03-05] MEDS ORDERED: LEVO75CA5 PO (13:53)
[2024-03-05] MEDS ORDERED: CARV12.511 PO (13:53)
[2024-03-10] MEDS ORDERED: **HM**(Cholecalciferol (Vitamin D3) 50,000 UNITS) PO SCH (09:00)
== END 2024-03-04 19:18 | disposition home or self-care (01) ==
LOC: EDH 23:11 → EDHIP 03-03 01:41 → 4BH 03-03 05:13
PROVIDERS: ADMIT Internal Medicine Critical Care Medicine; ATTEND Internal Medicine Critical Care Medicine
DX: I13.0 Hypertensive heart and chronic kidney disease with heart failure and stage 1 through stage 4 chronic kidney disease, or unspecified chronic kidney disease (principal); E11.22 Type 2 diabetes mellitus with diabetic chronic kidney disease; N18.9 Chronic kidney disease, unspecified; I50.30 Unspecified diastolic (congestive) heart failure; I16.0 Hypertensive urgency; E11.65 Type 2 diabetes mellitus with hyperglycemia; E87.5 Hyperkalemia; R07.89 Other chest pain; E03.9 Hypothyroidism, unspecified; N17.9 Acute kidney failure, unspecified; I27.20 Pulmonary hypertension, unspecified; E78.5 Hyperlipidemia, unspecified; I25.10 Atherosclerotic heart disease of native coronary artery without angina pectoris; D63.1 Anemia in chronic kidney disease; Z98.890 Other specified postprocedural states; Z79.899 Other long term (current) drug therapy
CPT/HCPCS: 82550; 83735 ×3; 84484 ×2; 80048 ×2; 83880; 85025 ×2; 71045; 93005 ×2; 96372 ×2; 96365; 96375 ×2; 99285; 84443; 83540; 83550; 84100; 85378; 85610; 85730; 86850; 86900; 86901; 82948 ×7; 81001; 36415 ×2; 78582; 84132; J1815; G0378 ×41; J7070; J0360; J1650 ×2; J0612; J1940; A9540; A9558; J3475; 96367; 96368; 96376

== ENCOUNTER 2024-03-05 11:56 | Inpatient (IN) | payer OTHER, MEDICARE ==
[~2024-03-05] VITALS: Ht 162.6 cm; Wt 67.9 kg
[~2024-03-05 11:56] MED LIST changes: +ASPI-1197 PO; +ATOR40TA69 PO; +CLON0.2T PO; +CLOP75TA32 PO; -CYAN-106 PO; +DAPA5TAB PO; -FERR324T9 PO; -FERS325 PO; -FOLI0.4T6 PO; +FOLI1TAB82 PO; +HYDR50TA37 PO; -LEVO75 PO; -LINA5TAB PO; -LISI40TA9 PO; +NIFE-40 PO; -ROSU10TA72 PO; +SACU1TAB7 PO; +TRAZ-185 PO; +VITAD50000 PO
--- NOTE | 2024-03-05 12:16 | EKG ---
[facility] Test Date: 2024-03-05 Test Time: 12:11:58 Pat Name: WILLIAM CHOPRA Department: ED Room: 429 Gender: F Street Inspector: [id number] : 1945 Requested By: FERNANDO HEBERT Order Number: [id number] Reading MD: Joseph Fountain Measurements Intervals Dorothy Rate: 76 P: 33 RI: 134 QRS: 48 QRSD: 89 T: 33 QT: 384 QTc: 434 Interpretive Statements Sinus rhythm Low voltage, precordial leads Nonspecific STT abnormality Compared to ECG 03/03/2024 00:50:32 Ventricular premature complex(es) no longer present Electronically Signed On 03-05-2024 17:49:57 ENGINEERING ASSISTANT by Joseph Fountain Please click the below link to view image of tracing.
[2024-03-05] MEDS: PANTOPrazole 40 MG/VIAL IVP ONE (12:20)
[2024-03-05 12:22] LABS: BASOPHILS # (AUTO) 0.04 K/uL (0.00-0.20); BASOPHILS % (AUTO) 0.6 % (0.0-5.0); EOSINOPHILS # (AUTO) 0.04 K/uL (0.00-0.70); EOSINOPHILS % (AUTO) 0.6 % (0.0-8.0); HEMATOCRIT 23.6 % (36-48); IMMATURE GRANULOCYTE ABSOLUTE 0.03 K/uL (0-1); LYMPHOCYTES # (AUTO) 1.5 K/uL (1.0-4.8); LYMPHOCYTES % (AUTO) 21.7 % (21.0-51.0); MEAN CORPUSCULAR HEMOGLOBIN 28.6 pg (27.0-33.0); MEAN CORPUSCULAR HGB CONC 33.9 g/dL (32.0-36.0); MEAN CORPUSCULAR VOLUME 84.3 fL (79-99); MONOCYTES # (AUTO) 0.5 K/uL (0.1-1.0); MONOCYTES % (AUTO) 7.6 % (3.0-13.0); NEUTROPHILS # (AUTO) 4.6 K/uL (1.8-7.7); NEUTROPHILS % (AUTO) 69.1 % (40.0-77.0); PLATELET COUNT (AUTO) 180 K/uL (130-400); RED CELL DISTRIBUTION WIDTH 15.6 % (11.0-15.5); WHITE BLOOD COUNT (AUTO) 6.7 K/uL (4.8-10.8)
[2024-03-05 12:35] LABS: INR 1.04 (0.85-1.15); PROTHROMBIN TIME 11.2 SEC (9.6-11.6)
[2024-03-05 12:36] LABS: PARTIAL THROMBOPLASTIN TIME 23.9 SEC (26.3-35.5)
[2024-03-05 12:49] LABS: CREATININE 1.6 mg/dL (0.5-1.0)
[2024-03-05 12:54] LABS: MAGNESIUM 1.8 mg/dL (1.80-2.40)
[2024-03-05 12:57] LABS: B-TYPE NATRIURETIC PEPTIDE 1070 pg/mL (0-100)
--- NOTE | 2024-03-05 13:15 | HMCIMG ---
CHEST 1VW CLINICAL HISTORY: c/p COMPARISON: 03/02/2024 TECHNIQUE: Single view of the chest was obtained. FINDINGS: Lungs are clear. The cardiac size and mediastinum are unremarkable. The bony structures are stable. IMPRESSION: No acute cardiopulmonary process identified.
--- NOTE | 2024-03-05 13:35 | ERN ---
General Chief Complaint: Hypertension Stated Complaint: HYPERTENSION Time Seen by MD: 12:02 Source: patient History of Present Illness Initial Comments Patient is a 78-year-old female coming in to be evaluated for chest pressure and elevated blood pressure. Patient states that she has been having elevated blood pressure for a couple of weeks was recently discharged with the same reason. Patient also states that she has been having some chest pressure and mild shortness of breath as well as nauseousness. Allergies: Coded Allergies: No Known Drug Allergies (Unverified Allergy, Unknown, 07/16/22) Home Meds Reported Medications Aspirin (Aspirin) 81 Mg Tab.chew, 81 MG PO DAILY, TAB.CHEW 03/03/24 Clopidogrel Bisulfate (Clopidogrel) 75 Mg Tablet, 75 MG PO DAILY, TAB 03/03/24 Atorvastatin Calcium (LIPITOR) 40 Mg Tablet, 40 MG PO HS, TAB 03/03/24 Clonidine HCl (Clonidine HCl) 0.2 Mg Tablet, 0.2 MG PO BIDMEALS, TAB 03/03/24 Hydralazine HCl (Hydralazine HCl) 50 Mg Tablet, 50 MG PO BID, TAB 03/03/24 Trazodone HCl (Trazodone HCl) 50 Mg Tablet, 50 MG PO HSPRN PRN for SLEEP, TAB 03/03/24 Isosorbide Mononitrate (Isosorbide Mononitrate) 10 Mg Tablet, 10 MG PO HS, TAB 03/03/24 Cholecalciferol (Vitamin D3) 1,250 Mcg (14704 Unit) Cap, 40157 UNITS PO QWEEK, CAP 03/03/24 Nifedipine (Nifedipine ER) 30 Mg Tab.er.24, 30 MG PO HS 03/03/24 Vit B Cmplx No3/FA/C/Biot/Zinc (Nephplex Rx Tablet) 1 Mg-60 Mg-300 Mcg-12.5 Mg Tablet, 1 TAB PO DAILY for 30 Days, #30 TAB 0 Refills 03/03/24 Sacubitril/Valsartan (Entresto 49 mg-51 mg Tablet) 49 Mg-51 Mg Tablet, 1 TAB PO BID for 30 Days, #60 TAB 0 Refills 03/03/24 Dapagliflozin Propanediol (Farxiga) 5 Mg Tablet, 5 MG PO DAILY, TAB 24 Carvedilol (Carvedilol) 12.5 Mg Tablet, 12.5 MG PO BID, TAB 12/03/23 Discontinued Reported Medications Cyanocobalamin (Vitamin B-12) (Vitamin B12) 1,000 Mcg Tablet, 1000 MCG PO DAILY, TAB 12/03/23 Ferrous Sulfate (Ferrous Sulfate) 325 Mg (65 Mg Iron) Ectab, 325 MG PO DAILY, TA B.EC 12/03/23 Folic Acid (Folic Acid) 0.4 Mg Tablet, 0.4 MG PO DAILY, TAB 12/03/23 Ferrous Fumarate (Ferrocite) 324 Mg (106 Mg Iron) Tablet, 324 MG PO AD, TAB 12/03/23 Isosorbide Mononitrate (Isosorbide Mononitrate) 10 Mg Tablet, 10 MG PO PM, TAB 07/17/22 Linagliptin (Tradjenta) 5 Mg Tablet, 5 MG PO DAILY, TAB 07/17/22 Lisinopril (Lisinopril) 40 Mg Tablet, 40 MG PO DAILY, TAB 07/17/22 Rosuvastatin Calcium (Rosuvastatin Calcium) 10 Mg Tablet, 10 MG PO DAILY, TAB 07/17/22 Levothyroxine Sodium (Levothroid/Synthroid) 75 Mcg Tab, 75 MCG PO DAILY, TAB 07/17/22 Past Medical History Past Medical History: Diabetes-Type II, High Cholesterol, Heart Disease, Hypertension, Hypothyroid Past Surgical History: Hysterectomy Family History Family History: Negative Social History Social History: Negative Female( History) History: Not Applicable ROS Dictation CONSTITUTIONAL: No chills, no fever, no weakness, no diaphoresis, no malaise. HEAD/FACE: No signs of trauma. EENT: No eye pain, no blurred vision, no tearing, no double vision, no ear pain, no ear discharge, no nose pain, no nasal congestion, no throat pain, no throat swelling, no mouth pain. RESPIRATORY: No cough, no orthopnea, SOB, no stridor, no wheezing. CARDIOVASCULAR: No chest pain, no edema, no palpitations, no syncope. GASTROINTESTINAL/ABDOMINAL: No abdominal pain, no constipation, no diarrhea, no nausea, no vomiting. GENITOURINARY: No abnormal discharge, no dysuria, no frequent urination, no hematuria. No complaints of pain in the genitals. MUSCULOSKELETAL: No back pain, no gout, no joint pain, no joint swelling, no muscle pain, no muscle stiffness, no neck pain. INTEGUMENTARY: No change in color, no change in hair/nails, no dryness, no lesion, no lumps, no rash. NEUROLOGICAL/PSYCH: No anxiety, not depressed, no emotional problem, no head ache, no numbness, no pre-existing deficit, no history of seizures, no tremors, no weakness. HEMATOLOGIC/LYMPHATIC: Not anemic, no history of blood clots, no apparent bleeding, no bruising, glands not swollen. All Systems Negative, Except as Noted. Physical Exam Physical Exam Dictation VITAL SIGNS: Reviewed. GENERAL APPEARANCE: Alert, oriented x3, no acute distress, obese. HEAD AND FACE: Non-traumatic. EYES: PERRL, pink conjunctivas, eyelid no trauma, anterior chamber clear. EARS: Pinnas intact and no signs of trauma or erythema. Ear canals clear and no discharge. TMs no erythema. NOSE: No discharge, no bleeding. OROPHARYNX: Mouth normal, teeth no caries, tongue pink. Pharynx clear, no erythema. Tonsils no exudates, no abscesses noted. Mucous membrane moist. NECK: Supple, non-tender, no thyromegaly, no masses, no JVD, no bruits. BREAST: Deferred. CHEST: No tenderness, no crepitus, no paradoxical movement, no retractions. LUNGS: Clear, well-ventilated, symmetric, rales, no wheezing, rhonchi, no stridor, good breath sounds bilaterally. HEART: Regular rate, regular rhythm, no murmur, no gallops. VASCULAR: No peripheral edema. ABDOMEN: Soft, positive bowel sounds, nondistended, no guarding, nontender, no rebound, no masses no hepatomegaly, no splenomegaly, no Dumont's sign, no hernias. RECTAL: Deferred. GENITAL: Deferred. NEUROLOGICAL: Normal speech, gross motor function intact, gross sensory function intact. MUSCULOSKELETAL: Neck nontender, full range of motion, back nontender, full range of motion. EXTREMITIES: Nontender, full range of motion. SKIN: Color pink, dry, no turgor, no rash, no lacerations, no abrasions, no contusions. LYMPHATICS: Deferred. Results Laboratory and Microbiology Lab and Micro Result Laboratory Tests Test 03/05/24 12:16 White Blood Count 6.7 K/uL (4.8-10.8) Red Blood Count 2.80 MIL/uL (4.00-5.50) L Hemoglobin 8.0 g/dL (12.0-16.0) L Hematocrit 23.6 % (36-48) L Mean Corpuscular Volume 84.3 fL (79-99) Mean Corpuscular Hemoglobin 28.6 pg (27.0-33.0) Mean Corpuscular Hemoglobin Concent 33.9 g/dL (32.0-36.0) Red Cell Distribution Width 15.6 % (11.0-15.5) H Platelet Count 180 K/uL (130-400) Mean Platelet Volume 12.1 fL (7.5-10.5) H Immature Granulocyte % (Auto) 0.4 % (0-1) Neutrophils (%) (Auto) 69.1 % (40.0-77.0) Lymphocytes (%) (Auto) 21.7 % (21.0-51.0) Monocytes (%) (Auto) 7.6 % (3.0-13.0) Eosinophils (%) (Auto) 0.6 % (0.0-8.0) Basophils (%) (Auto) 0.6 % (0.0-5.0) Neutrophils # (Auto) 4.6 K/uL (1.8-7.7) Lymphocytes # (Auto) 1.5 K/uL (1.0-4.8) Monocytes # (Auto) 0.5 K/uL (0.1-1.0) Eosinophils # (Auto) 0.04 K/uL (0.00-0.70) Basophils # (Auto) 0.04 K/uL (0.00-0.20) Absolute Immature Granulocyte (auto 0.03 K/uL (0-1) Nucleated Red Blood Cells 0.0 % (0.0-0.19) Prothrombin Time 11.2 SEC (9.6-11.6) Prothromb Time International Ratio 1.04 (0.85-1.15) Activated Partial Thromboplast Time 23.9 SEC (26.3-35.5) L Sodium Level 141 mmol/L (136-145) Potassium Level 5.0 mmol/L (3.5-5.1) Chloride Level 109 mmol/L (101-111) Carbon Dioxide Level 23 mmol/L (21-32) Blood Urea Nitrogen 32 mg/dL (7-18) H Creatinine 1.6 mg/dL (0.5-1.0) H Glomerular Filtration Rate Calc 33 mL/min (>90) Random Glucose 172 mg/dL (70-105) H Total Calcium 8.5 mg/dL (8.5-10.1) Magnesium Level 1.80 mg/dL (1.80-2.40) Total Creatine Kinase 104 U/L (21-232) Troponin I High Sensitivity 13 ng/L (4-50) B-Type Natriuretic Peptide 1070 pg/mL (0-100) H Labs Reviewed?: Yes EKG/XRAY/US/CT/MRI EKG Comment 03/05/2024 time 8:11 p.m. Ventricular rate 76 Sinus rhythm PA [address] wave elevation or depression X-RAY Comment [place] [id number] [place] [id number] IMAGING REPORT Signed PATIENT: WILLIAM CHOPRA MR#: [id number] : 1945 SEX: F AGE: 78 LOCATION: [facility] ORDER 04 STATUS: [facility] REPORT#: [id number] SERVICE 120 REASON: c/p ORDERING PHYSICIAN: FERNANDO HEBERT MD PROCEDURE: CXR1VW - CHEST 1VW CHEST 1VW CLINICAL HISTORY: c/p COMPARISON: 03/02/2024 TECHNIQUE: Single view of the chest was obtained. FINDINGS: Lungs are clear. The cardiac size and mediastinum are unremarkable. The bony structures are stable. IMPRESSION: No acute cardiopulmonary process identified. DICTATED BY: ANANYA ALFONSO DO DATE: 03/05/241311 ELECTRONICALLY SIGNED BY: ANANYA ALFONSO DO DATE: 03/05/24 131 [facility] MDM: Differential diagnosis: CHF exacerbation, nauseousness, hypertension uncontrolled, Rationale: Tests considered and ordered secondary to shared decision making include: labs, ECG and radiology Previous outside records reviewed: Old ER visits. Risk of complication and/or morbidity or mortality of patient management: None Medications-Per medication reconciliation Need for hospitalization: Patient does meet criteria for hospitalization. Need for emergency major/minor surgery: No There are no social concerns with this patient. Prescription drug management Prescriptions will include symptomatic care Patient's prior external medical records from other ER visits were reviewed by me as indicated. Prior testing and results from previous visits were reviewed. Prior tests were taken into account with medical decision making and resource utilization, independent historian/historians were used to obtain complete medical history. I independently interpreted the test that were performed, results were reviewed by me and considered findings on radiology if ordered. Medical management and examination interpretation discussions were had by me with other qualified healthcare professionals as indicated for the patient's care. Patient is a 78-year-old female coming in to be evaluated for elevated blood pressure and mild shortness of breath. She will be admitted under the care of [facility] for ongoing management of acute on chronic CHF exacerbation with the elevated blood pressure. ED Course Orders Procedure Category Date Status Time Cbc With Differential LAB 03/05/24 Complete 12:03 Prothrombin Time With LAB 03/05/24 Complete INR 12:03 B-Type Natriuretic LAB 03/05/24 Complete Peptide 12:03 Chest 1vw RAD 03/05/24 Resulted 12:03 12 Lead Ekg Tracing- EKG 03/05/24 Complete Technical 12:03 Magnesium LAB 03/05/24 Complete 12:03 Creatine Kinase, Total LAB 03/05/24 Complete 12:03 Troponin I High LAB 03/05/24 Complete Sensitivity 12:03 Urinalysis Profile LAB 03/05/24 In Process 12:03 Partial LAB 03/05/24 Complete Thromboplastin Time 12:03 Basic Metabolic Panel LAB 03/05/24 Complete 12:03 Pantoprazole 40mg Inj PHA 03/05/24 Complete (Protonix 40mg Inj 12:30 Furosemide 40mg Vial PHA 03/05/24 In Process (Lasix 40mg Vial) 14:00 Current Medications Medications (Trade) Dose Ordered Sig/Kimberly Route PRN Reason Start Time Stop Time Status Last Admin Dose Admin Furosemide (LASix 40MG VIAL) 40 mg ONCE ONCE IV 03/05/24 14:00 03/05/24 14:01 03/05/24 13:37 Pantoprazole Sodium (PROTonix 40MG INJ) 40 mg ONCE ONCE IVP 03/05/24 12:30 03/05/24 12:31 DC 03/05/24 12:20 Vital Signs Date Time Temp Pulse Resp B/P (MAP) Pulse Ox O2 Delivery O2 Flow Rate FiO2 03/05/24 12:35 78 18 189/53 100 Room Air* 0 21 03/05/24 11:58 98.4 74 18 188/61 100 Room Air 0 HEART Score Response (Comments) Value History: High suspicion (+2) 2 EKG: Normal 0 Age: > 65yrs (+2) 2 Risk Factors: 3+ risk factors (+2) 2 Initial Troponin: Normal limit (0) 0 HEART Score Risk: High Risk for MACE (7-10) Total 6 DX & DISP Disposition: Inpatient Decision to Admit Time: 13:40 Departure Impression: Primary Impression: Acute on chronic diastolic CHF (congestive heart failure) Additional Impression: Hypertensive emergency Condition: Stable Referrals: BATSHEVA LINDSEY M.D. (PCP) FERNANDO HEBERT MD Mar 05, 2024 13:35
[2024-03-05] MEDS: furoSEMIDE 40MG VIAL IV ONE (13:37)
[2024-03-05 13:51] LABS: ADD UA MICROSCOPIC YES; APPEARANCE,URINE CLEAR (CLEAR); BILIRUBIN,URINE NEGATIVE (NEGATIVE); COLOR,URINE LIGHT-YELLOW (YELLOW); GLUCOSE, URINE (UA) >=1000 mg/dL (NEGATIVE); KETONES,URINE NEGATIVE (NEGATIVE); LEUKOCYTE ESTERASE ,URINE NEGATIVE Leu/uL (NEGATIVE); NITRATE,URINE NEGATIVE (NEGATIVE); OCCULT BLOOD,URINE NEGATIVE (NEGATIVE); PH,URINE 7.5 (5.0-8.0); PROTEIN,URINE 100 mg/dL (NEGATIVE); UROBILINOGEN,URINE 0.2 mg/dL (0.2-1.0)
--- NOTE | 2024-03-05 13:51 | HP ---
[facility] HISTORY & PHYSICAL Date Patient Seen: Mar 05, 2024 Time of Visit: 13:45 Supervising Physician: Tomy El MD Primary Care Physician: Dr Lucita Arredondo Outpatient Specialists: Dr Ash Inpatient Consults: [ ] PROBLEM LIST: Hypertension urgency, POA likely from clonidine rebound HTN Acute on chronic diastolic heart failure with the EF of 50% on 11/2023, Pulmonary hypertension RVSP of 47.6 mm Hg on 2D echo 12/17/23 Anemia of chronic illness, POA CKD stage III Hyperglycemia in the presence of type 2 diabetes mellitus, POA Overweight, POA Glucosuria Proteinuria Chronic history: Hyperlipidemia, hypothyroidism, CAD status post left heart catheterization with stenting on Plavix and ASA HPI: This is a 78-year-old female with a past medical history of hypotension, hyperlipidemia, CAD status post left heart catheterization with stenting on DAPT with aspirin and Plavix, anemia, type 2 diabetes mellitus, CKD stageIII, CHF with EF of 50% and pulmonary hypertension with RVSP of 47.6 on last echo done on November of 2023 presented to the emergency department for evaluation of elevated blood pressure, fatigue, chest pain and nausea. As per ED physician would like patient admitted for acute on chronic CHF. On assessment of patient she is awake alert and oriented x3 in the emergency department room 17. Patient reports that she ran out of her medication clonidine 0.2 mg p.o. b.i.d. and has been having trouble obtaining it from the pharmacy. She reports she has not been taking it for the last few days. Patient also reported she was recently here on 03/03/24 for chest pain that radiated to left arm and hypertension. She was discharged yesterday in the afternoon with a blood pressure 118/61 she was told her blood pressure was normal and she could follow up with the ethylbenzene converter operator in three days. Patient decided to come in today because she checked her blood pressure at home and it was elevated with some chest pain nausea and headache. On arrival to the emergency department patient has a blood pressure of 188/61 heart rate in the 70s respiratory rate of 18 saturating 100% on room air and afebrile. Pertinent laboratory BNP 1070, BUN 32 creatinine 1.6 GFR of 33 and glucose of 172 mg/dL initial high sensitive troponin 13 potassium was 5.0. On CBC H&H 8/23.6 and normocytic consistent with her chronic anemia. Platelet count is 733194 white count was normal neutrophils are normal. COVID influenza and strep throat negative. On urinalysis patient has protein 100, glucose greater than 1000, WBCs of 2-5. Patient was admitted for observation and for IV Lasix. We will keep patient overnight, 2D echo, resume clonidine 0.2 mg p.o. b.i.d. for rebound hypertension from clonidine withdrawal, monitor blood pressure and slowly decreased. Monitor for hypertensive emergency and trend sensitive troponins. IF Cardiac workup negative and blood pressure improves by tomorrow patient may be discharged home with refill prescriptions for her medications including clonidine, and levothyroxine inpatient to keep her follow up with primary care provider in one three days and ethylbenzene converter operator this week. PAST MEDICAL HX: Hyperlipidemia Hypothyroidism Anemia of chronic illness Type 2 diabetes mellitus Diastolic heart failure with EF of 50% on 11/2023 Pulmonary hypertension RVSP of 47.6 mm Hg poor 2D echo on 11/2023 Chronic kidney disease stage III CAD status post left heart catheterization with stenting on Plavix PAST SURGICAL HX: Left heart catheterization with stenting on DAPT w/Plavix and aspirin SOCIAL HISTORY: No tobacco, ETOH, or illicit drug use Coded Allergies: No Known Drug Allergies (Unverified Allergy, Unknown, 07/16/22) REVIEW OF SYSTEMS: Const: No fever yes for fatigue and weight gain of 12 lb in one month Eyes:[ no recent vision problems] ENT: No congestion, no sore throat but reports tinnitus C/V: No palpitations but yes for edema and chest pain Resp: No cough, congestion, wheezing yes for dyspnea on exertion. GI: [No abdominal pain, nausea, vomiting, constipation, or diarrhea] : [No incontinence of or dyuria] M/S: [No joint or pain swelling] Skin: [No rash] Neuro: Yes to headache, no focal numbness, or weakness, dizziness or seizures] Psych: [no depression or anxiety] Heme: [no abnormal bruising or bleeding] Lymph: [no swollen glands] PHYSICAL EXAM: GENERAL: alert, weak, awake oriented x 3 HEENT: EOMI, Sclera non icteric, moist mucosa NECK: Supple, no JVD, trachea midline LUNGS: Diminished breath sounds bilaterally. No wheezes HEART: Regular rate and rhythm. Normal S1 and S2, without murmurs ABD: Abdomen soft, nontender. Bowel sounds present EXT: No clubbing cyanosis or edema NEURO: Alert and oriented to person, follows commands Vital Signs (last 8hr) Date Time Temp Pulse Resp B/P (MAP) Pulse Ox O2 Delivery O2 Flow Rate FiO2 03/05/24 12:35 78 18 189/53 100 Room Air* 0 21 03/05/24 11:58 98.4 74 18 188/61 100 Room Air 0 LABS: Hematology Labs: Test 03/05/24 12:16 Range/Units White Blood Count 6.7 4.8-10.8 K/uL Red Blood Count 2.80 L 4.00-5.50 MIL/uL Hemoglobin 8.0 L 12.0-16.0 g/dL Hematocrit 23.6 L 36-48 % Mean Corpuscular Volume 84.3 79-99 fL Mean Corpuscular Hemoglobin 28.6 27.0-33.0 pg Mean Corpuscular Hemoglobin Concent 33.9 32.0-36.0 g/dL Red Cell Distribution Width 15.6 H 11.0-15.5 % Platelet Count 180 130-400 K/uL Mean Platelet Volume 12.1 H 7.5-10.5 fL Immature Granulocyte % (Auto) 0.4 0-1 % Neutrophils (%) (Auto) 69.1 40.0-77.0 % Lymphocytes (%) (Auto) 21.7 21.0-51.0 % Monocytes (%) (Auto) 7.6 3.0-13.0 % Eosinophils (%) (Auto) 0.6 0.0-8.0 % Basophils (%) (Auto) 0.6 0.0-5.0 % Neutrophils # (Auto) 4.6 1.8-7.7 K/uL Lymphocytes # (Auto) 1.5 1.0-4.8 K/uL Monocytes # (Auto) 0.5 0.1-1.0 K/uL Eosinophils # (Auto) 0.04 0.00-0.70 K/uL Basophils # (Auto) 0.04 0.00-0.20 K/uL Absolute Immature Granulocyte (auto 0.03 0-1 K/uL Nucleated Red Blood Cells 0.0 0.0-0.19 % Chemistry Labs: Test 03/05/24 12:16 Range/Units Sodium Level 141 136-145 mmol/L Potassium Level 5.0 3.5-5.1 mmol/L Chloride Level 109 101-111 mmol/L Carbon Dioxide Level 23 21-32 mmol/L Blood Urea Nitrogen 32 H 7-18 mg/dL Creatinine 1.6 H 0.5-1.0 mg/dL Glomerular Filtration Rate Calc 33 >90 mL/min Random Glucose 172 H 70-105 mg/dL Total Calcium 8.5 8.5-10.1 mg/dL Magnesium Level 1.80 1.80-2.40 mg/dL Total Creatine Kinase 104 21-232 U/L Troponin I High Sensitivity 13 4-50 ng/L B-Type Natriuretic Peptide 1070 H 0-100 pg/mL Coagulation Labs: Test 03/05/24 12:16 Range/Units Prothrombin Time 11.2 9.6-11.6 SEC Prothromb Time International Ratio 1.04 0.85-1.15 Activated Partial Thromboplast Time 23.9 L 26.3-35.5 SEC DIAGNOSTICS / RADIOLOGY RESULTS: Signed PATIENT: WILLIAM CHOPRA MR#: [id number] : 1945 SEX: F AGE: 78 LOCATION: [facility] ORDER 04 STATUS: [facility] REPORT#: [id number] SERVICE 120 REASON: c/p ORDERING PHYSICIAN: FERNANDO HEBERT MD PROCEDURE: CXR1VW - CHEST 1VW CHEST 1VW CLINICAL HISTORY: c/p COMPARISON: 03/02/2024 TECHNIQUE: Single view of the chest was obtained. FINDINGS: Lungs are clear. The cardiac size and mediastinum are unremarkable. The bony structures are stable. IMPRESSION: No acute cardiopulmonary process identified. DICTATED BY: ANANYA ALFONSO DO DATE: 03/05/241311 ELECTRONICALLY SIGNED BY: ANANYA ALFONSO DO DATE: 03/05/241314 PLAN Admit to [facility] with tele. 2D echo Lasix 20 mg q.12 hours Cardiac panel q.6 hours Resume home medications accordingly Avoid nephrotoxic medication Daily weights Strict I&O Fluid restriction 1500 mL P.r.n. blood pressure medication hydralazine 10 mg for systolic blood pressure greater than 160 Labetalol 10 mg for systolic blood pressure greater than 180 Resume her clonidine 0.2 mg p.o. b.i.d. Refill her blood pressure medication clonidine 0.2 mg p.o. b.i.d. prior to discharge GI and DVT prophylaxis NEURO: Minimize central acting medications as possible. Maintain fall precautions, adequate lighting during the day PULMONARY: Supplemental 02 as needed. Maintain aspiration precautions at all times CARDIOVASCULAR: Follow hemodynamics. Vital signs per facility protocol GI & NUTRITION: Continue with nutritional support. Continue stool softeners and laxatives as needed. KIDNEYS & ELECTROLYTES: Strict monitoring of intake, output and overall fluid balance. Avoid nephrotoxic medications to the extent possible. Medications to be dosed according to renal function. Monitor electrolytes and replace as needed ENDOCRINE: Maintain blood glucose between 100-180 at all times. Hypoglycemia protocol in place INFECTIOUS DISEASE: Trend temperature, WBC and procalcitonin level Follow cultures, deescalate antibiotics as soon as possible. Panculture if new onset fever ONCOLOGY/HEMATOLOGY/COAGULATION: Monitor for s/s of bleeding Monitor hemoglobin, coagulation studies as needed SKIN: Pressure ulcer prevention per facility protocol Specialty mattress ORTHO/REHAB: Continue PT/OT Prophylaxis: Continue GI and DVT prophylaxis Code Status: Full Resuscitation Disposition: TBD Other: Total patient care time exceeds 35 minutes excluding all procedures. [facility] Mar 05, 2024 13:50
[2024-03-05 13:52] LABS: RBC,URINE 0-1 /HPF (0-1); SQUAMOUS EPITHELIAL CELL,UR RARE /HPF (0-2)
[2024-03-05] MEDS ORDERED: CARV12.511 PO (13:53)
[2024-03-05] MEDS ORDERED: FERR324T9 PO (13:53)
[2024-03-05] MEDS ORDERED: LEVO75CA5 PO (13:53)
--- NOTE | 2024-03-05 13:54 | NUR ---
HOME MEDICATIONS UPDATED ON EMR
[2024-03-05] MEDS: furoSEMIDE 20MG VIAL IV SCH (13:58)
[2024-03-05] MEDS: hydrALAZine 25MG TABLET PO SCH (13:59)
[2024-03-05] MEDS ORDERED: doCUSate SODIUM 100 MG CAP PO PRN (14:00)
[2024-03-05] MEDS ORDERED: LAbetaLOL 20MG SYG IV PRN (14:00)
[2024-03-05] MEDS ORDERED: PoTASSium chloRIDE 10MEQ/100ML 100 ML IV PRN (14:00)
[2024-03-05] MEDS ORDERED: PoTASSium chloRIDE 20MEQ ER 20 MEQ ERTAB PO PRN (14:00)
[2024-03-05] MEDS ORDERED: MAGNESIUM 2GM PREMIX 50ML 50 ML IV PRN (14:00)
[2024-03-05] MEDS ORDERED: LACTULOSE 20 GM/30 ML UDCUP PO PRN (14:00)
[2024-03-05] MEDS ORDERED: acetaMINOPHEN 650 MG SUPPOSITORY RC PRN (14:00)
[2024-03-05] MEDS ORDERED: traMADol HCL 50 MG TABLET PO PRN (14:00)
[2024-03-05] MEDS ORDERED: TEMAZepam 15 MG CAPSULE PO PRN (14:00)
[2024-03-05] MEDS ORDERED: GLUCAGON 1MG KIT 1 MG ML IM PRN (14:00)
[2024-03-05] MEDS ORDERED: PoTASSium chl 10% ELIXIR 20MEQ 20 MEQ/15 ML UDCUP PO PRN (14:00)
[2024-03-05] MEDS ORDERED: DEXTROSE 50%-WATER 50 ML DISP.SYRIN IV PRN (14:00)
[2024-03-05] MEDS: cloNIDine HCL 0.2 MG TABLET PO SCH (14:30)
[2024-03-05 14:38] LABS: RAPID GROUP A STREP negative (NEGATIVE)
[2024-03-05 14:48] LABS: COVID19 (SARS ANTIGEN RAPID) PRESUMPTIVE NEGATIVE (NEGATIVE); INFLUENZA TYPE A Negative For Type A (NEGATIVE); INFLUENZA TYPE B Negative For Type B (NEGATIVE)
[2024-03-05] MEDS ORDERED: trAZOdone HCL 50 MG TAB PO PRN (15:00)
[2024-03-05] MEDS: HEParin 5,000 UNIT VIAL SQ SCH (16:09)
[2024-03-05] MEDS: INSULIN humuLIN R 100 UNIT/ML 3ML SQ SCH (16:11)
[2024-03-05] MEDS: hydrALAZine 20MG/ML VIAL IV PRN (17:13)
[2024-03-05 17:30] VITALS: O2SAT 98
[2024-03-05 17:42] VITALS: BP 163/54; PULSE 67; RESP 18; TEMP 98.1
--- NOTE | 2024-03-05 18:30 | NUR ---
PT STATED PHARMACY WAS UNABLE TO FILL HER NEW RX STATED WAS DISCHARGED HOME YESTERDAY FROM THIS FACILITY AND PHARMACY WAS UNABLE O FILL HER RX; THEREFORE SHE DID NOT TAKE HER B/P MEDS AND CAME TO THE ER FOR ELEVATED B/P
[2024-03-05 20:00] VITALS: BP 152/51; PULSE 75; RESP 19; TEMP 98.1
[2024-03-05] MEDS ORDERED: simVASTatin 20 MG TABLET PO SCH (21:00)
[2024-03-05] MEDS: carVEDIlol 12.5 MG TABLET PO SCH (21:00)
[2024-03-05 21:01] VITALS: O2SAT 99
[2024-03-05] MEDS: atorVAStatin 40 MG TABLET PO SCH (21:01)
[2024-03-05] MEDS: metoPROLOL tartRATE 25 MG TAB PO SCH (21:01)
[2024-03-05] MEDS: nifeDIPine ER 30 MG TAB PO SCH (21:02)
[2024-03-06] VITALS (9 sets, daily range): BP systolic 113–147; BP diastolic 42–71; PULSE 56–71; RESP 18–19; TEMP 98–99; O2SAT 97
[2024-03-06 02:44] LABS: B-TYPE NATRIURETIC PEPTIDE 633 pg/mL (0-100)
[2024-03-06 02:56] LABS: CREATININE 1.7 mg/dL (0.5-1.0); MAGNESIUM 1.8 mg/dL (1.80-2.40); POTASSIUM 4.9 mmol/L (3.5-5.1); THYROID STIMULATING HORMONE 4.22 uIU/mL (0.36-3.74)
[2024-03-06 03:35] LABS: BASOPHILS # (AUTO) 0.03 K/uL (0.00-0.20); BASOPHILS % (AUTO) 0.7 % (0.0-5.0); EOSINOPHILS # (AUTO) 0.05 K/uL (0.00-0.70); EOSINOPHILS % (AUTO) 1.2 % (0.0-8.0); IMMATURE GRANULOCYTE ABSOLUTE 0.01 K/uL (0-1); LYMPHOCYTES # (AUTO) 1.6 K/uL (1.0-4.8); LYMPHOCYTES % (AUTO) 38.4 % (21.0-51.0); MEAN CORPUSCULAR HEMOGLOBIN 28.4 pg (27.0-33.0); MEAN CORPUSCULAR HGB CONC 33.5 g/dL (32.0-36.0); MEAN CORPUSCULAR VOLUME 84.9 fL (79-99); MONOCYTES # (AUTO) 0.5 K/uL (0.1-1.0); MONOCYTES % (AUTO) 11.8 % (3.0-13.0); NEUTROPHILS % (AUTO) 47.7 % (40.0-77.0); PLATELET COUNT (AUTO) 139 K/uL (130-400); RED BLOOD CELL COUNT(AUTO) 2.18 MIL/uL (4.00-5.50); RED CELL DISTRIBUTION WIDTH 15.6 % (11.0-15.5); WHITE BLOOD COUNT (AUTO) 4.3 K/uL (4.8-10.8)
[2024-03-06 03:59] LABS: HEMATOCRIT 18.5 % (36-48)
[2024-03-06] MEDS ORDERED: levoTHYROxine 75 MCG TABLET PO SCH (06:30)
[2024-03-06] MEDS ORDERED: PoTASSium chloRIDE 10MEQ SR 10 MEQ/TAB TAB.SR.24H PO PRN (06:30)
[2024-03-06] MEDS: levoTHYROxine 75 MCG TABLET PO SCH (06:36)
--- NOTE | 2024-03-06 07:13 | HMCSR ---
APPROVED REPORT EXAM: Two-dimensional and M-mode echocardiogram with Doppler and color Doppler. Study Details: HTN , HLD , CAD . Diabts M INDICATION ICD: Susspected acute on chronic CH 2D Dimensions RVDd4.1 cmLVEF(%)79.2 (>50%)LVED Vol(simp.)133.0 mL IVSd1.2 (0.7-1.1cm)FS(%)48 %LVES Vol(simp.)42.1 mL LVDd4.6 (3.8-5.6cm)LA (2D)4.6 (1.6-4.0cm)LVEF(%, simp.)68 % PWd1.2 (0.7-1.1cm)Ao Root(2D)2.8 (2.0-3.7cm)LA ESV INDEX (4CH)33.00 mL/m2 IVSs1.5 cmLVOT diam2.0 (1.8-2.4cm)LA ESV INDEX (2CH)35.20 mL/m2 LVDs2.4 (2.5-4.0cm)LA ESV INDEX (BP)37.80 mL/m2 PWs2.0 cm Deformation Strain Apical 419.0 % Apical 221.0 % Apical 320.0 % Global Rgxkir97.0 % M-Mode Dimensions EPSS0.3 cm LA (MM)4.7 (1.6-4.0cm) Ao Root(MM)2.4 (2.0-3.7cm) Aortic Valve AoV VTI0.5 mAo Mean GR9.0 mmHgLVOT VTI0.40 m CYNDY (VMAX)2.3 cm2AVA (VTI) 2.3 cm2 Mitral Valve MV E Jcgj051.1 cm/sDECEL Sowv088 ms MV A Zqyo359.4 cm/sP 1/2 T92 ms E/A ratio1.1MVA (PHT)2.4 cm2 TDI E/E' Fktgov85.3E/E' Cjoguta88.4 Medial E' Peak V3.90 cm/sLateral E' Peak V3.20 cm/s Pulmonary Valve PV VTI0.34 mPV Mean GR4 mmHg Left Ventricle The left ventricle is normal size. There is normal LV segmental wall motion. Moderate concentric left ventricular hypertrophy. The LVEF is > 55%. Stage II, diastolic dysfunction. Right Ventricle The right ventricle is normal size. The right ventricular systolic function is normal. Atria The left atrium is moderately dilated. The interatrial septum is intact with no evidence for an atria l septal defect. The right atrium is mildly dilated. Aortic Valve The aortic valve is mildly thickened. Aortic valve is trileaflet. No aortic regurgitation is present. There is no aortic valvular stenosis. Mitral Valve The mitral valve is mildly thickened. Mild posterior mitral annular calcification present. There is n o evidence of significant mitral regurgitation. There is no mitral valve stenosis. Tricuspid Valve The tricuspid valve is normal in structure. There is no tricuspid valve regurgitation noted. Pulmonic Valve The pulmonary valve is normal in structure. There is no pulmonic valvular regurgitation. Great Vessels The aortic root is normal in size. The ascending aorta is normal in size. The IVC is normal in size a nd collapses >50% with inspiration. Pericardium no pericardial effusion. Conclusion Normal LV EF NO significant valve abnormalities Echo features suggestive of hypertensive heart disease
[2024-03-06] MEDS: Vitamin B Complex/Vit C/Folic Acid PO SCH (08:32)
[2024-03-06] MEDS: FERROUS FUMARATE 324 MG TABLET PO SCH (08:33)
[2024-03-06] MEDS: PANTOPrazole 40 MG TAB DR PO SCH (08:33)
[2024-03-06] MEDS: DAPAGLIFLOZIN PROPANEDIOL 5 MG PO SCH (08:37)
[2024-03-06] MEDS: ASPIRIN 81MG CHEW TAB PO SCH (08:39)
[2024-03-06] MEDS: cloPIDOgrel 75MG TAB PO SCH (08:39)
--- NOTE | 2024-03-06 11:28 | NUR ---
DCP: HOME Pt states her daughter Shyla Neil [phone] is living with her and is pt's provider 3.5hrs a day. Pt states daughter assists her as needed. Pt also states she has HH for PT 3x a week. Pt does not remember names of agencies she uses. Pt has no DME. PCP is Kevin Landrum and uses [facility] for rx. Pt denies need for SNF and [place] Addendum: 03/06/24 at 1129 by OSORIO STOVALL Amended: Links added.
[2024-03-06 15:10] LABS: HEMATOCRIT 22.9 % (36-48)
--- NOTE | 2024-03-06 15:14 | PN ---
[facility] PROGRESS NOTE Date Patient Seen: Mar 06, 2024 Time of Visit: 1123 Supervising Physician: Dr. Summers Primary Care Physician: Dr Lucita Arredondo Outpatient Specialists: Dr Ash Inpatient Consults: Hematology PROBLEM LIST: Hypertension urgency, POA likely from clonidine rebound HTN Acute on chronic diastolic heart failure with the EF of 50% on 11/2023, Pulmonary hypertension RVSP of 47.6 mm Hg on 2D echo 12/17/23 Anemia of chronic illness, POA requiring blood transfusion hemoglobin 6.2 CKD stage III Hyperglycemia in the presence of type 2 diabetes mellitus, POA Overweight, POA Glucosuria Proteinuria Chronic history: Hyperlipidemia, hypothyroidism, CAD status post left heart catheterization with stenting on Plavix and ASA INTERVAL HISTORY: 03/06 patient was seen and examined by bedside with no family present. Patient is awake alert able to answer simple questions appropriately. At time of visit patient denies any chest pain or shortness of breadth. Patient currently on room air appears to be tolerating well. Patient denies any nausea vomiting or abdominal pain. Patient's hemoglobin this a.m. is 6.2 we will receive1 unit PRBCs at this time. Patient denies any hematuria, hemoptysis, melena, or he matochezia. At this time we will consult Hematology for patient's chronic anemia. Appreciate assistance we will follow recommendations. We will repeat patient's labs morning and continue to monitor patient's closely. We will transfuse1 unit PRBCs for hemoglobin less than seven REVIEW OF SYSTEMS: Const: No fever yes for fatigue and weight gain of 12 lb in one month Eyes:[ no recent vision problems] ENT: No congestion, no sore throat but reports tinnitus C/V: No palpitations but yes for edema and chest pain Resp: No cough, congestion, wheezing yes for dyspnea on exertion. GI: [No abdominal pain, nausea, vomiting, constipation, or diarrhea] : [No incontinence of or dyuria] M/S: [No joint or pain swelling] Skin: [No rash] Neuro: Yes to headache, no focal numbness, or weakness, dizziness or seizures] Psych: [no depression or anxiety] Heme: [no abnormal bruising or bleeding] Lymph: [no swollen glands] PHYSICAL EXAM: GENERAL: alert, weak, awake oriented x 3 HEENT: EOMI, Sclera non icteric, moist mucosa NECK: Supple, no JVD, trachea midline LUNGS: Diminished breath sounds bilaterally. No wheezes HEART: Regular rate and rhythm. Normal S1 and S2, without murmurs ABD: Abdomen soft, nontender. Bowel sounds present EXT: No clubbing cyanosis or edema NEURO: Alert and oriented to person, follows commands Vital Signs (last 8hr) Date Time Temp Pulse Resp B/P (MAP) Pulse Ox O2 Delivery O2 Flow Rate FiO2 03/06/24 11:57 98.2 56 18 125/42 98 Room Air 03/06/24 08:33 134/46 03/06/24 08:33 67 134/46 03/06/24 08:03 98.4 67 19 134/46 99 Room Air 03/06/24 08:00 97 Room Air* 0 21 LABS: Hematology Labs: Test 03/06/24 02:04 Range/Units White Blood Count 4.3 #L 4.8-10.8 K/uL Red Blood Count 2.18 #L 4.00-5.50 MIL/uL Hemoglobin 6.2 #*L 12.0-16.0 g/dL Hematocrit 18.5 #*L 36-48 % Mean Corpuscular Volume 84.9 79-99 fL Mean Corpuscular Hemoglobin 28.4 27.0-33.0 pg Mean Corpuscular Hemoglobin Concent 33.5 32.0-36.0 g/dL Red Cell Distribution Width 15.6 H 11.0-15.5 % Platelet Count 139 130-400 K/uL Mean Platelet Volume 12.3 H 7.5-10.5 fL Immature Granulocyte % (Auto) 0.2 0-1 % Neutrophils (%) (Auto) 47.7 40.0-77.0 % Lymphocytes (%) (Auto) 38.4 21.0-51.0 % Monocytes (%) (Auto) 11.8 3.0-13.0 % Eosinophils (%) (Auto) 1.2 0.0-8.0 % Basophils (%) (Auto) 0.7 0.0-5.0 % Neutrophils # (Auto) 2.0 1.8-7.7 K/uL Lymphocytes # (Auto) 1.6 1.0-4.8 K/uL Monocytes # (Auto) 0.5 0.1-1.0 K/uL Eosinophils # (Auto) 0.05 0.00-0.70 K/uL Basophils # (Auto) 0.03 0.00-0.20 K/uL Absolute Immature Granulocyte (auto 0.01 0-1 K/uL Nucleated Red Blood Cells 0.0 0.0-0.19 % Chemistry Labs: Test 03/06/24 10:57 03/06/24 02:04 Range/Units Whole Blood Glucose 116 H 70-110 MG/DL Sodium Level 142 136-145 mmol/L Potassium Level 4.9 3.5-5.1 mmol/L Chloride Level 110 101-111 mmol/L Carbon Dioxide Level 29 21-32 mmol/L Blood Urea Nitrogen 31 H 7-18 mg/dL Creatinine 1.7 H 0.5-1.0 mg/dL Glomerular Filtration Rate Calc 31 >90 mL/min Random Glucose 105 70-105 mg/dL Total Calcium 8.0 L 8.5-10.1 mg/dL Magnesium Level 1.80 1.80-2.40 mg/dL Total Creatine Kinase 76 # 21-232 U/L Troponin I High Sensitivity 14.9 4-50 ng/L B-Type Natriuretic Peptide 633 H 0-100 pg/mL Thyroid Stimulating Hormone (TSH) 4.22 #H 0.36-3.74 uIU/mL Coagulation Labs: Test 03/05/24 12:16 Range/Units Prothrombin Time 11.2 9.6-11.6 SEC Prothromb Time International Ratio 1.04 0.85-1.15 Activated Partial Thromboplast Time 23.9 L 26.3-35.5 SEC DIAGNOSTICS / RADIOLOGY RESULTS: na PLAN Transfuse1 unit PRBCs for hemoglobin less than seven Continue to monitor hemoglobin closely We will repeat labs morning We will consult Hematology patient has chronic anemia Continue mg b.i.d. Continue clonidine 0.2 mg b.i.d. Continue carvedilol 12.5 mg b.i.d. Continue belgtnt30 mg daily Continue Plavix 75 mg daily Continue atorvastatin 40 mg q.h.s. Continue nifedipine 30 mg q.h.s. Continue Lasix q.12 We will hold patient's heparin at this time due to hemoglobin being 6.2 NEURO: Minimize central acting medications as possible. Maintain fall precautions, adequate lighting during the day PULMONARY: Supplemental 02 as needed. Maintain aspiration precautions at all times CARDIOVASCULAR: Follow hemodynamics. Vital signs per facility protocol GI & NUTRITION: Continue with nutritional support. Continue stool softeners and laxatives as needed. KIDNEYS & ELECTROLYTES: Strict monitoring of intake, output and overall fluid balance. Avoid nephrotoxic medications to the extent possible. Medications to be dosed according to renal function. Monitor electrolytes and replace as needed ENDOCRINE: Maintain blood glucose between 100-180 at all times. Hypoglycemia protocol in place INFECTIOUS DISEASE: Trend temperature, WBC and procalcitonin level Follow cultures, deescalate antibiotics as soon as possible. Panculture if new onset fever ONCOLOGY/HEMATOLOGY/COAGULATION: Monitor for s/s of bleeding Monitor hemoglobin, coagulation studies as needed SKIN: Pressure ulcer prevention per facility protocol Specialty mattress ORTHO/REHAB: Continue PT/OT Prophylaxis: Continue GI and DVT prophylaxis Code Status: Full Resuscitation Disposition: TBD Other: Case discussed with supervising physician plan of care agreed upon NIKA VEGA Mar 06, 2024 15:14
[2024-03-07] VITALS (9 sets, daily range): BP systolic 116–163; BP diastolic 48–59; PULSE 57–90; RESP 18–20; TEMP 98–98.5; O2SAT 98–99
[2024-03-07 05:27] LABS: CREATININE 1.8 mg/dL (0.5-1.0); POTASSIUM 4.4 mmol/L (3.5-5.1)
[2024-03-07 05:55] LABS: HEMATOCRIT 21.3 % (36-48); MEAN CORPUSCULAR HGB CONC 33.8 g/dL (32.0-36.0); MEAN CORPUSCULAR VOLUME 85.9 fL (79-99); RED BLOOD CELL COUNT(AUTO) 2.48 MIL/uL (4.00-5.50); RED CELL DISTRIBUTION WIDTH 15.1 % (11.0-15.5); WHITE BLOOD COUNT (AUTO) 4.5 K/uL (4.8-10.8)
[2024-03-07 12:02] LABS: % IRON SATURATION 44.7 % (22-44)
--- NOTE | 2024-03-07 16:27 | PN ---
[facility] PROGRESS NOTE Date Patient Seen: Mar 07, 2024 Time of Visit: 16:27 Supervising Physician: MD ORI Primary Care Physician: Dr Lucita Arredondo Outpatient Specialists: Dr Ash Inpatient Consults: Hematology PROBLEM LIST: Hypertension urgency, POA -controlled likely from clonidine rebound HTN Acute on chronic diastolic heart failure with the EF of 50% on 11/2023, compensated Pulmonary hypertension RVSP of 47.6 mm Hg on 2D echo 12/17/23 Anemia of chronic illness, POA requiring blood transfusion hemoglobin 6.2 CKD stage III Hyperglycemia in the presence of type 2 diabetes mellitus, POA Overweight, POA Glucosuria Proteinuria Chronic history: Hyperlipidemia, hypothyroidism, CAD status post left heart catheterization with stenting on Plavix and ASA INTERVAL HISTORY: Patient evaluated, s/p 1 unit PRBC Hg improved to 7.6 post transfusion howver has downtrended to 7.1 once again overnight. She denies dark ,melanotic or bright red blood per rectum. Last colonoscopy was done over 5 years ago but less than 10 years ago and was advised of multiple polyps but has not followed up with GI as she did not think she had to. She has no hx of prior GI bleeding but does suffer from Iron def anemia for which her PCP treats with Iron . Iron studies + for Iron def anemia REVIEW OF SYSTEMS: 12 point ROS reviewed , only positive as per above PHYSICAL EXAM: GENERAL: alert, weak, awake oriented x 3 HEENT: EOMI, Sclera non icteric, moist mucosa NECK: Supple, no JVD, trachea midline LUNGS: Diminished breath sounds bilaterally. No wheezes HEART: Regular rate and rhythm. Normal S1 and S2, without murmurs ABD: Abdomen soft, nontender. Bowel sounds present EXT: No clubbing cyanosis or edema NEURO: Alert and oriented to person, follows commands Vital Signs (last 8hr) Date Time Temp Pulse Resp B/P (MAP) Pulse Ox O2 Delivery O2 Flow Rate FiO2 03/07/24 16:08 98.1 90 19 141/54 100 Room Air 03/07/24 12:00 98.4 59 19 126/48 99 Room Air 03/07/24 08:41 129/54 03/07/24 08:40 61 129/54 LABS: Hematology Labs: Test 03/07/24 04:55 03/06/24 02:04 Range/Units White Blood Count 4.5 L 4.8-10.8 K/uL Red Blood Count 2.48 L 4.00-5.50 MIL/uL Hemoglobin 7.2 L 12.0-16.0 g/dL Hematocrit 21.3 L 36-48 % Mean Corpuscular Volume 85.9 79-99 fL Mean Corpuscular Hemoglobin 29.0 27.0-33.0 pg Mean Corpuscular Hemoglobin Concent 33.8 32.0-36.0 g/dL Red Cell Distribution Width 15.1 11.0-15.5 % Platelet Count 129 L 130-400 K/uL Mean Platelet Volume 12.4 H 7.5-10.5 fL Nucleated Red Blood Cells 0.0 0.0-0.19 % Immature Granulocyte % (Auto) 0.2 0-1 % Neutrophils (%) (Auto) 47.7 40.0-77.0 % Lymphocytes (%) (Auto) 38.4 21.0-51.0 % Monocytes (%) (Auto) 11.8 3.0-13.0 % Eosinophils (%) (Auto) 1.2 0.0-8.0 % Basophils (%) (Auto) 0.7 0.0-5.0 % Neutrophils # (Auto) 2.0 1.8-7.7 K/uL Lymphocytes # (Auto) 1.6 1.0-4.8 K/uL Monocytes # (Auto) 0.5 0.1-1.0 K/uL Eosinophils # (Auto) 0.05 0.00-0.70 K/uL Basophils # (Auto) 0.03 0.00-0.20 K/uL Absolute Immature Granulocyte (auto 0.01 0-1 K/uL Chemistry Labs: Test 03/07/24 15:03 03/07/24 11:24 03/07/24 06:07 03/07/24 04:55 Range/Units Whole Blood Glucose 156 H 70-110 MG/DL Iron Level 76 # 50-170 mcg/dL Total Iron Binding Capacity 170 L 250-450 mcg/dL Percent Iron Saturation 44.7 H 22-44 % Bedside Glucose Comment Notified Nurse Sodium Level 138 136-145 mmol/L Potassium Level 4.4 3.5-5.1 mmol/L Chloride Level 105 101-111 mmol/L Carbon Dioxide Level 27 21-32 mmol/L Blood Urea Nitrogen 35 H 7-18 mg/dL Creatinine 1.8 H 0.5-1.0 mg/dL Glomerular Filtration Rate Calc 29 >90 mL/min Random Glucose 124 H 70-105 mg/dL Total Calcium 8.1 L 8.5-10.1 mg/dL Test 03/06/24 02:04 Range/Units Magnesium Level 1.80 1.80-2.40 mg/dL Total Creatine Kinase 76 # 21-232 U/L Troponin I High Sensitivity 14.9 4-50 ng/L B-Type Natriuretic Peptide 633 H 0-100 pg/mL Vitamin B12 Level 739 193-986 pg/mL Folic Acid (LAB) > 20.00 H 2-20 ng/mL Thyroid Stimulating Hormone (TSH) 4.22 #H 0.36-3.74 uIU/mL DIAGNOSTICS / RADIOLOGY RESULTS: [ ] PLAN Venofer IV x 1 , repeat hg in AM Hematology was consulted yesterday and pending to see. Continue [id number] mg b.i.d. Continue clonidine 0.2 mg b.i.d. Continue carvedilol 12.5 mg b.i.d. Continue mg daily Continue Plavix 75 mg daily Continue atorvastatin 40 mg q.h.s. Continue nifedipine 30 mg q.h.s. Continue Lasix q.12 DVt prophylaxis via SCD and ambulation NEURO: Minimize central acting medications as possible. Maintain fall precautions, adequate lighting during the day PULMONARY: Supplemental 02 as needed. Maintain aspiration precautions at all times CARDIOVASCULAR: Follow hemodynamics. Vital signs per facility protocol GI & NUTRITION: Continue with nutritional support. Continue stool softeners and laxatives as needed. KIDNEYS & ELECTROLYTES: Strict monitoring of intake, output and overall fluid balance. Avoid nephrotoxic medications to the extent possible. Medications to be dosed according to renal function. Monitor electrolytes and replace as needed ENDOCRINE: Maintain blood glucose between 100-180 at all times. Hypoglycemia protocol in place INFECTIOUS DISEASE: Trend temperature, WBC and procalcitonin level Follow cultures, deescalate antibiotics as soon as possible. Panculture if new onset fever ONCOLOGY/HEMATOLOGY/COAGULATION: Monitor for s/s of bleeding Monitor hemoglobin, coagulation studies as needed SKIN: Pressure ulcer prevention per facility protocol Specialty mattress ORTHO/REHAB: Continue PT/OT Prophylaxis: Continue GI and DVT prophylaxis Code Status: Full Resuscitation Disposition: Home in next 24 -48h Other: Case discussed with supervising physician plan of care agreed upon MCKEON,WILMA M PA Mar 07, 2024 16:27
[2024-03-07] MEDS: IRON sUCROse COMPLEX 100 MG/5 ML VIAL IV ONE (17:34)
[2024-03-07] MEDS: acetaMINOPHEN 325 MG TAB PO PRN (22:15)
--- NOTE | 2024-03-08 00:05 | CONS ---
REFERRING PHYSICIAN: Patricia. REASON FOR CONSULTATION: Anemia. HISTORY OF PRESENT ILLNESS: This is a 78-year-old woman with hypertension, hyperlipidemia, coronary artery disease, anemia, diabetes, stage 3 kidney disease, CHF, who presented to the Emergency Room with high blood pressure, fatigue, chest pain. She is seen for CHF exacerbation. She is treated for the same. Worked up by her primary doctors are hemoglobin went down to 8, white count was elevated. I was asked to see her for evaluation. PAST MEDICAL HISTORY: * Anemia. * Hyperlipidemia. * Hypothyroidism. * Type 2 diabetes. * Diastolic heart failure. * Pulmonary hypertension. * Stage 3 kidney disease. * Coronary artery disease. PAST SURGICAL HISTORY: He has had a heart catheterization and stenting. Otherwise, per old records. MEDICATIONS ON ADMISSION: See intake sheet. ALLERGIES: No drug allergies. FAMILY HISTORY: Negative for heart disease. SOCIAL HISTORY: Lives with her family. Retired. Does not smoke or drink. REVIEW OF SYSTEMS: CONSTITUTIONAL: Fatigue and she has gained about 12 pounds. HEENT: Negative for blurred vision. CARDIOVASCULAR: Short of breath. PULMONARY: Short of breath. GASTROINTESTINAL: Negative. Bowel sounds present. GENITOURINARY: Negative for hematuria or dysuria. PHYSICAL EXAMINATION: GENERAL: Shows a pleasant elderly woman. VITAL SIGNS: Blood pressure 129/54, pulse 61, respirations 19. HEENT: Benign. NECK: Supple, without adenopathy or bruit. CHEST: Showed decreased breath sounds bilaterally. HEART: Regular rate and rhythm. ABDOMEN: Soft. EXTREMITIES: Show edema. NEUROLOGIC: Intact. LABORATORY DATA: CBC: White count 6.18, platelets 180. IMPRESSION: Anemia, renal failure, cannot rule out superimposed blood loss, congestive heart failure exacerbation, coronary disease. Other problems as listed. PLAN: Agree with your plan to treat her heart failure, stabilize her condition. She can follow up with me in the office. Regarding the anemia, we can put her back on erythropoietin. TID: [id number] RECEIPT: [id number]
[2024-03-08 04:34] VITALS: BP 137/80; PULSE 57; RESP 18; TEMP 98.4
[2024-03-08 05:44] LABS: BASOPHILS # (AUTO) 0.03 K/uL (0.00-0.20); BASOPHILS % (AUTO) 0.7 % (0.0-5.0); EOSINOPHILS # (AUTO) 0.04 K/uL (0.00-0.70); EOSINOPHILS % (AUTO) 0.9 % (0.0-8.0); HEMATOCRIT 22.1 % (36-48); IMMATURE GRANULOCYTE ABSOLUTE 0.01 K/uL (0-1); LYMPHOCYTES # (AUTO) 1.6 K/uL (1.0-4.8); LYMPHOCYTES % (AUTO) 36.9 % (21.0-51.0); MEAN CORPUSCULAR HEMOGLOBIN 28.4 pg (27.0-33.0); MONOCYTES # (AUTO) 0.6 K/uL (0.1-1.0); MONOCYTES % (AUTO) 14.6 % (3.0-13.0); NEUTROPHILS % (AUTO) 46.7 % (40.0-77.0); PLATELET COUNT (AUTO) 132 K/uL (130-400); RED BLOOD CELL COUNT(AUTO) 2.57 MIL/uL (4.00-5.50); RED CELL DISTRIBUTION WIDTH 15.3 % (11.0-15.5); WHITE BLOOD COUNT (AUTO) 4.3 K/uL (4.8-10.8)
[2024-03-08 06:10] LABS: POTASSIUM 4.3 mmol/L (3.5-5.1)
[2024-03-08 08:00] VITALS: BP 143/43; PULSE 57; RESP 18; TEMP 98.2; O2SAT 97
[2024-03-08 12:00] VITALS: BP 124/49; PULSE 54; RESP 18; TEMP 98
--- NOTE | 2024-03-08 15:50 | NUR ---
DISCHARGED PRINTED DISCHARGED PAPERWORK AND WRITTEN PRESCRIPTION GIVEN TO PATIENT, EDUCATED PATIENT ON FOLLOW UP VISITS, DIET/ACTIVITY, ANSWERED PT QUESTIONS, PT UNDERSTOOD.
[2024-03-08] MEDS ORDERED: ISOS10TA8 PO (17:17)
[2024-03-08] MEDS ORDERED: CLON0.2T PO (17:17)
--- NOTE | 2024-03-08 17:26 | DS ---
[facility] DISCHARGE SUMMARY Date Patient Seen: Mar 08, 2024 Time of Visit: 17:17 Supervising Physician: DR LAMBERT Primary Care Physician: Dr Lucita Arredondo Outpatient Specialists: Dr Ash Inpatient Consults: Hematology- DR Whitley PROBLEM LIST: Hypertension urgency, POA -controlled likely from clonidine rebound HTN Acute on chronic diastolic heart failure with the EF of 50% on 11/2023, compensated Pulmonary hypertension RVSP of 47.6 mm Hg on 2D echo 12/17/23 Anemia of chronic illness, POA requiring blood transfusion hemoglobin 6.2 CKD stage III Hyperglycemia in the presence of type 2 diabetes mellitus, POA Overweight, POA Glucosuria Proteinuria Chronic history: Hyperlipidemia, hypothyroidism, CAD status post left heart catheterization with stenting on Plavix and ASA HOSPITAL COURSE: This is a case of a pleasant 78-year-old woman with a past medical history as stated above that presented secondary to hypertensive urgency after the patient ran out of to over medications and pharmacy did not dispense in a timely manner given they did not have the supply. The patient presented to the emergency room and [place] pressure has been controlled. Of note during her hospital stay she was noted to have a hemoglobin of 6.8 requiring1 unit PRBC transfusion. The patient post transfusion had a marginal hemoglobin that was at 7.2, iron studies revealed iron deficiency anemia. She did receive IV Venofer x1 and hematology was consulted recommending outpatient follow up with epoetin injections. She denied melena, hematochezia , and does have a hx of colonic polyps from prior colonscopy done 5-10 years ago but did not follow up after that. I did contact PCP and informed her of recommendation for GI referral and FU with Dr. Figueroa. Patient provided with paper script for BP meds that were out in the event that [facility] pharmacy does not have her scripts. Changed Medications: Isosorbide Mononitrate (Isosorbide Mononitrate) 10 Mg Tablet 20 MG PO BID for 30 Days, #60 TAB (Changed from: 10 MG; HS) Continued Medications: Aspirin (Aspirin) 81 Mg Tab.chew 81 MG PO DAILY, TAB.CHEW Atorvastatin Calcium (Lipitor) 40 Mg Tablet 40 MG PO HS, TAB Carvedilol (Carvedilol) 12.5 Mg Tablet 1 TAB PO BID for 30 Days, #60 TAB 0 Refills Cholecalciferol (Vitamin D3) 1,250 Mcg (87262 Unit) Cap 22063 UNITS PO QWEEK, CAP Clonidine HCl (Clonidine HCl) 0.2 Mg Tablet 0.2 MG PO BIDMEALS for 30 Days, #60 TAB (This prescription has been renewed) Clopidogrel Bisulfate (Clopidogrel) 75 Mg Tablet 75 MG PO DAILY, TAB Ferrous Fumarate (Ferrocite) 324 Mg (106 Mg Iron) Tablet 1 TAB PO DAILY for 30 Days, #30 TAB 0 Refills Levothyroxine Sodium (Levothyroxine) 75 Mcg Capsule 1 TAB PO DAILY for 30 Days, #30 CAP 0 Refills Nifedipine (Nifedipine ER) 30 Mg Tab.er.24 30 MG PO HS Sacubitril/Valsartan (Entresto 49 mg-51 mg Tablet) 49 Mg-51 Mg Tablet 1 TAB PO BID for 30 Days, #60 TAB 0 Refills Trazodone HCl (Trazodone HCl) 50 Mg Tablet 50 MG PO HSPRN PRN for SLEEP, TAB Vit B Cmplx No3/FA/C/Biot/Zinc (Nephplex Rx Tablet) 1 Mg-60 Mg-300 Mcg-12.5 Mg Tablet 1 TAB PO DAILY for 30 Days, #30 TAB 0 Refills Discontinued Medications: Carvedilol (Carvedilol) 12.5 Mg Tablet 12.5 MG PO BID, TAB Dapagliflozin Propanediol (Farxiga) 5 Mg Tablet 5 MG PO DAILY, TAB Dapagliflozin Propanediol (Farxiga) 5 Mg Tablet 1 TAB PO DAILY for 30 Days, #30 TAB 0 Refills Hydralazine HCl (Hydralazine HCl) 50 Mg Tablet 50 MG PO BID, TAB PHYSICAL EXAM: GENERAL: alert, weak, awake oriented x 3 HEENT: EOMI, Sclera non icteric, moist mucosa NECK: Supple, no JVD, trachea midline LUNGS: Diminished breath sounds bilaterally. No wheezes HEART: Regular rate and rhythm. Normal S1 and S2, without murmurs ABD: Abdomen soft, nontender. Bowel sounds present EXT: No clubbing cyanosis or edema NEURO: Alert and oriented to person, follows commands FOLLOW-UP: Follow-up with PCP in 2-[address] Figueroa in 1 week RECOMMENDATIONS: Gi referral This case was seen and discussed with my supervising physician. More than 30 minutes spent on discharge process, including evaluation of the patient, discussion with nursing staff, medication reconciliation and follow-up appointments WILMA MCKEON Mar 08, 2024 17:26
== END 2024-03-08 15:50 | disposition home or self-care (01) | DRG 291 ==
LOC: EDH 11:56 → EDHIP 13:45 → OBSVTOIN 13:45 → 4AH 17:21
PROVIDERS: ADMIT Internal Medicine Critical Care Medicine; ATTEND Internal Medicine Critical Care Medicine
PROC: 302 Administration, Circulatory, Transfusion (ICD-10-PCS; principal; 2024-03-06)
DX: I13.0 Hypertensive heart and chronic kidney disease with heart failure and stage 1 through stage 4 chronic kidney disease, or unspecified chronic kidney disease (principal); I50.33 Acute on chronic diastolic (congestive) heart failure; I16.1 Hypertensive emergency; N18.30 Chronic kidney disease, stage 3 unspecified; D63.1 Anemia in chronic kidney disease; I27.20 Pulmonary hypertension, unspecified; Z20.822 Contact with and (suspected) exposure to COVID-19; E11.65 Type 2 diabetes mellitus with hyperglycemia; E78.00 Pure hypercholesterolemia, unspecified; I25.10 Atherosclerotic heart disease of native coronary artery without angina pectoris; D50.9 Iron deficiency anemia, unspecified; E03.9 Hypothyroidism, unspecified; E66.3 Overweight; E11.22 Type 2 diabetes mellitus with diabetic chronic kidney disease; Z68.25 Body mass index [BMI] 25.0-25.9, adult; Z90.710 Acquired absence of both cervix and uterus; Z79.82 Long term (current) use of aspirin; Z79.899 Other long term (current) drug therapy
CPT/HCPCS: 36415; 36430; 71045; 80048; 81001; 82550; 82607; 82746; 82948; 83540; 83550; 83735; 83880; 84443; 84484; 85014; 85018; 85025; 85027; 85610; 85730; 86850; 86900; 86901; 86923; 87426; 87804; 87880; 93005; 93306; 93356; 96374; 96375; 99285; G0378; J0360; J1644; J1756; J1815; J1940; J2470; P9016

== ENCOUNTER → 2024-10-19 | Outpatient (CLI) | payer OTHER, MEDICAID ==
[~2024-10-19] MED LIST changes: +ASPI-1005 PO; +CARV12.580 PO; +CHOL2000 PO; +FERR324T9 PO; +HYDR25TA67 PO; -HYDR50TA37 PO; -ISOS10TA8 PO; +ISOS10TA96 PO; +LEVO88TA7 PO; -NIFE-40 PO; +NIFE90TA65 PO; +RANO500T2 PO; +TICA90TA PO; +TORS10TA18 PO; -TRAZ-185 PO; -VITAD50000 PO
--- NOTE | 2024-10-19 15:29 | HMCIMG ---
Exam: Ultrasound deep veins bilateral upper extremity. History: Acute embolism and thrombosis of superficial vein Comparison: Bilateral upper extremity venous ultrasound 08/21/2024 Findings: Martin scale and color/doppler static images of the deep veins of the left upper extremity were submitted without a comparison exam. Left upper extremity: There is normal response to compression and augmentation maneuvers throughout the visualized deep veins of the left upper extremity to include the: Axillary, brachial, cephalic, basilic as well as portions of the subclavian and internal jugular veins Patent blood flow was detected with color/doppler imaging. No fluid collection or other abnormality is delineated. Right upper extremity: There is normal response to compression and augmentation maneuvers throughout the visualized deep veins of the left upper extremity to include the: Axillary, brachial, cephalic as well as portions of the subclavian and internal jugular veins. There is superficial thrombosis within the right basilic vein IMPRESSION: 1. No acute deep venous thrombosis in bilateral upper extremities. 2. Superficial thrombosis in right basilic vein. /[place]
--- NOTE | 2024-10-19 16:45 | HMCIMG ---
EXAM: CT Abdomen and Pelvis No Intravenous Contrast CLINICAL HISTORY: 78-year-old female history of anorexia. TECHNIQUE: Axial computed tomography images of the abdomen and pelvis without intravenous contrast. Dose reduction technique was used including one or more of the following: automated exposure control, adjustment of mA and kV according to patient size, and/or iterative reconstruction. CONTRAST: None. COMPARISON: CT Abdomen and Pelvis 07/05/2023. FINDINGS: LUNG BASES: Atelectasis in the lung bases. No basilar consolidation or pleural effusion. LIVER: Unremarkable. GALLBLADDER AND BILE DUCTS: Unremarkable. No calcified stone. No ductal dilation. PANCREAS: Unremarkable. SPLEEN: Unremarkable. ADRENAL GLANDS: Unremarkable. KIDNEYS, URETERS, AND BLADDER: Unremarkable. No hydronephrosis or nephrolithiasis. No ureteral or bladder calculi. STOMACH AND BOWEL: Sigmoid colon diverticulosis without diverticulitis. No obstruction. No wall thickening. No CT evidence of colitis. APPENDIX: No CT evidence for appendicitis. PERITONEUM: Previously visualized effusions on CT Abdomen and Pelvis 07/05/2023 are not seen on the current exam. LYMPH NODES: No lymphadenopathy. REPRODUCTIVE: There is a large right ovarian cyst measuring 9.8 x 6.2 cm, increased compared to prior CT Abdomen and Pelvis 07/05/2023. Follow-up with pelvic ultrasound is recommended. Uterus and left adnexa are not visualized. VASCULATURE: Atherosclerotic calcifications of the mesenteric arteries and atherosclerotic aortoiliac bifurcation. ABDOMINAL WALL AND SOFT TISSUES: Unremarkable. BONES: No fracture or suspicious osseous abnormality. Multiple chronic findings similar to prior CT Abdomen and Pelvis 07/05/2023. IMPRESSION: 1. Large right ovarian cyst measuring 9.8 x 6.2 cm, increased compared to prior CT Abdomen and Pelvis 07/05/2023. Follow-up with pelvic ultrasound recommended. 2. Sigmoid colon diverticulosis without diverticulitis. /[place]
== END | disposition home or self-care (01) ==
LOC: RAH 12:54
PROVIDERS: ATTEND Internal Medicine
DX: N83.201 Unspecified ovarian cyst, right side (principal); I82.611 Acute embolism and thrombosis of superficial veins of right upper extremity; K57.30 Diverticulosis of large intestine without perforation or abscess without bleeding; K55.1 Chronic vascular disorders of intestine; J98.11 Atelectasis; I70.0 Atherosclerosis of aorta; D64.9 Anemia, unspecified; R63.0 Anorexia; R68.81 Early satiety
CPT/HCPCS: 74176; 93970

== ENCOUNTER → 2024-12-07 | Outpatient (CLI) | payer OTHER, MEDICAID ==
--- NOTE | 2024-12-07 14:51 | HMCIMG ---
US RENAL SONOGRAM Indication: ABN RENAL FUNCTION STUDIES Technique: Renal ultrasound was performed by a sole stainer and reviewed by a radiologist. Findings: Right Kidney: 10 x 5.0 x 4.6 cm. Unremarkable sonographic appearance without focal lesions or hydronephrosis. Left Kidney: 10.0 x 5.5 x 4.5 cm. Unremarkable sonographic appearance without focal lesions or hydronephrosis. Urinary bladder: Unremarkable. The urinary bladder wall thickness is 0.3 cm. Impression: Normal renal ultrasound.
== END | disposition home or self-care (01) ==
LOC: RAH 11:03
PROVIDERS: ATTEND Internal Medicine Nephrology
DX: R94.4 Abnormal results of kidney function studies (principal)
CPT/HCPCS: 76770

== ENCOUNTER → 2025-02-07 | Outpatient (CLI) | payer OTHER, MEDICAID ==
--- NOTE | 2025-02-07 17:45 | HMCIMG ---
EXAM: MR Pelvis Without IV Contrast CLINICAL HISTORY: R93.89 ??? Abnormal findings on diagnostic imaging of other specified body structures. TECHNIQUE: Multisequence, multiplanar magnetic resonance imaging of the pelvis performed without intravenous contrast. COMPARISON: CT Abdomen and Pelvis without contrast dated October 19, 2024, 15:23 EDT, which showed a right ovarian cyst measuring 9.8 ??? 6.2 cm, increased in size compared to July 05, 2023. FINDINGS: Bowel: Visualized bowel loops are grossly unremarkable. No evidence of bowel obstruction, wall thickening, or inflammation. Bladder: Urinary bladder is partially distended. Indentation along the bladder dome caused by a large adjacent cystic lesion. No calculus or mural thickening. Reproductive Organs: Surgically absent uterus. A large right hemipelvic cystic lesion measuring approximately 10 ??? 7 cm is seen, hyperintense on T2/STIR and hypointense on T1, with thin smooth chinchilla and no solid or nodular components. The lesion indents the bladder dome and displaces surrounding bowel loops. Left adnexa not well visualized, likely unremarkable. Peritoneum: No free intraperitoneal fluid. Extensive pelvic and abdominal wall edema noted. No loculated collection. Lymph Nodes: No pelvic or para-aortic lymphadenopathy. Bones: Visualized pelvic bones show normal marrow signal without acute fracture or lytic/sclerotic lesion. IMPRESSION: 1. Large right hemipelvic cyst (10 ??? 7 cm), likely benign ovarian or adnexal, T2/STIR hyperintense and T1 hypointense, with thin smooth chinchilla and no solid or nodular components. Cyst causes bladder dome indentation and displaces surrounding bowel loops. 2. Extensive abdominal and pelvic wall edema. 3. No significant interval change in cyst size or appearance compared to prior CT (October 19, 2024). 4. Status post hysterectomy. 5. No pelvic or para-aortic lymphadenopathy. 6. Normal marrow signal in visualized pelvic bones without acute fracture or lytic/sclerotic lesion. 7. No evidence of bowel obstruction, wall thickening, or inflammation in visualized bowel loops. 8. No free intraperitoneal fluid or loculated collection. /[place]
== END | disposition home or self-care (01) ==
LOC: RAH 08:32
PROVIDERS: ATTEND Internal Medicine
DX: N94.89 Other specified conditions associated with female genital organs and menstrual cycle (principal); N32.89 Other specified disorders of bladder; R60.1 Generalized edema; R93.89 Abnormal findings on diagnostic imaging of other specified body structures; Z90.710 Acquired absence of both cervix and uterus
CPT/HCPCS: 72195